=== PATIENT | female | born 2000 ===

== ENCOUNTER 2024-08-31 09:49 | Outpatient (AMB) | payer OTHER, BC, SELFPAY ==
--- NOTE | 2024-08-31 09:52 | A.OFFPC_ITS ---
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 Intake Note: new patient to establish care Bootmaker Hand Required: No Allergies No Known Allergies Allergy (Verified 08/31/24 10:06) Medication List - Last Reconciled 08/31/24 by KEENA Schaeffer No Known Home Meds Tobacco use date assessed: 08/31/24 Dental Screening Dental Screen Date: 08/31/24 Did you have a dental visit in the last 12 months?: Yes Did you have a dental problem in the last 6 months where you did not have access to dental care?: No Was dental information given to patient?: Patient has dentist HPI HPI Comments History of Present Illness Details 23 y/o F with seasonal allergies Surgery: None Familyhx: Paternal side substance abuse; Maternal great aunt breast cancer dx < age 50 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 No pets. Health Maintenance: Tdap declined Pap has never had one Flu declined Specialists: None Here today to [facility] care. for a CPE No medical records Well, offers no complaints. Does not wear glasses. Vision WNL has seasonal allergies that lead to nasal congestion and occasional use of nasal spray and oral antihistamines for relieF + effect Plan - Seasonal Allergic Rhinitis: Continue c urrent use of nasal spray and oral antihistamines as needed. No new medications prescribed. - Family History of Breast Cancer: Refer ral to [facility] for Pap smear and further women's health evaluation, establishing relationship for future gynecological care. - Vaccinations: Patient advised on impor tance of updating tetanus vaccination and possibility of receiving it during a future visit, despite uncertainty of last immunization. - Routine Lab Work: Offered to update sc reening labs including cholesterol and glucose, but patient opted to defer. Discussion Notes I discussed the importance of maintaining regular wellness exams and updating vaccinations. We reviewed the appropriate screenings, including Pap smears, to commence a preventative strategy for her gynecological health. We also considered updating her routine lab work, which she chose to delay. We discussed her family history of breast cancer and the referral process for establishing care with an [facility]. The risks and benefits of updating vaccinations were explained, specifically regarding tetanus, with her decision respected. I emphasized the option for further testing if she so chooses in the future. RTO 1 YEAR CPE SOONER PRN PFSH Medical History No pertinent past medical history Surgical History (Updated 08/31/24 @ 10:00 by Yung Lara MA) No pertinent past surgical history Family History Paternal Grandmother Substance abuse Maternal Grandmother Cancer Diabetes Social History (Updated 08/31/24 @ 09:58 by Yung Lara MA) Household Members: Significant Other Both parents involved: No Caregiver staying overnight: No Housing: Apartment Are you a primary career representative to a significant other at home: No Do you presently have visiting nurse or other home services: No 75 years or older and lives alone: No Alcohol intake: current Alcohol intake frequency: a few times a month Patient Tobacco Use Status: Never used Tobacco e-Cigarette/Vaping Use: Never Used Second Hand Smoke Exposure: No Current occupational status: employed 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 1. Little interest or pleasure in doing things: not at all 2. Feeling down, depressed, or hopeless: not at all 3. Trouble falling or staying asleep, or sleeping too much: not at all 4. Feeling tired or having little energy: not at all 5. Poor appetite or overeating: not at all 6. Feeling bad about yourself - or that you are a failure or have let yourself or your family down: not at all 7. Trouble concentrating on things, such as reading the newspaper or watching television: not at all 8. Moving or speaking so slowly that other people could have noticed. Or the opposite - being so fidgety or restless that you have been moving around a lot more than usual: not at all 9. Thoughts that you would be better off or of hurting yourself in some way: not at all Total score: 0 Depression Screening Interpretation: Negative Depression Screening Done: Yes 26118 - PHQ-9 Billing: Yes Source: Developed by Drs. Leodan Mar, Ramya Pineda, Sae Thomas and colleagues, with an educational ernst from [employer]. Thrive Questionnaire Date Thrive assessed: 08/31/24 I am a: Patient What is your living situation today?: I have a steady place to live Within the past 12 months, did the food you bought not last and you didn't have the money to get more?: Never true Within the past 12 months, did you worry whether your food would run out before you got money to buy more?: Never true Do you have trouble paying for medicines?: No Do you have trouble getting transportation to medical appointments?: No Do you have trouble paying your heating and electricity bill?: No Do you have trouble taking care of your child, family member or friend?: No Do you have trouble with day-to-day activities such as bathing, preparing meals, shopping, managing finances, etc.?: No Are you currently unemployed and looking for a job?: No Are you interested in more education?: No Please select the resources that you would like help with: None Currently or been in a relationship where the following occur: No concerns reported THRIVE Score: 0 AUDIT C Alcohol Use Questionnaire (AUDIT-C) 1. How often do you have a drink containing alcohol?: 2-4 times a month 2. How many drinks containing alcohol do you have on a typical day when you are drinking?: 1 or 2 3. How often do you have six or more drinks on one occasion?: Never Total Score: 2 Score Reviewed/Action Taken: Yes RUBÉN-7 AMB Questionnaire RUBÉN-7 Date RUBÉN - 7 assessed: 08/31/24 Feeling nervous, anxious, or on edge: 0 = Not at all Not being able to stop or control worryin = Not at all Worrying too much about different things: 0 = Not at all Trouble relaxin = Not at all Being so restless that it is hard to sit still: 0 = Not at all Becoming easily annoyed or irritable: 0 = Not at all Feeling afraid as if something awful might happen: 0 = Not at all Total RUBÉN-7 score (0-4 normal; 5-9 mild; 10-14 moderate; 15-21 severe): 0 Source: Developed by Drs. Leodan Mar, Ramya Pineda, Sae Thomas and colleagues, with an educational ernst from [employer]. RUBÉN-7 Assessment Billing RUBÉN-7 Assessment Tool: RUBÉN-7 Assessment 73576 Review of Systems Const Details: Constitutional: Denies fever. Skin: Denies rash. Eye: Denies eye pain. ENMT: Denies sore throat and nasal congestion. Respiratory: Denies shortness of breath and cough. Gastrointestinal: Denies nausea, vomiting or abdominal pain. Cardiovascular: Denies chest pain and syncope. Genitourinary: Denies dysuria. Musculoskeletal: Denies back pain and extremity pain. Neurologic: Denies headaches, confusion, and weakness. Psychiatric: Denies suicidal thoughts and substance abuse. Allergy/ Immunologic: Denies impaired immunity. Physical exam (Primary Care) Vital Signs: Last Vital Signs Pulse 85 08/31/24 10:00 Resp 12 08/31/24 10:00 BP 102/66 08/31/24 10:00 Pulse Ox 99 08/31/24 10:00 Oxygen Delivery Method Room Air 08/31/24 10:00 BMI result Body Mass Index 28.5 Tobacco/Smoking Status: Tobacco use Status Tobacco use date assessed 08/31/24 08/31/24 10:02 Patient Tobacco Use Status Never used Tobacco 08/31/24 10:02 e-Cigarette/Vaping Use Never Used 08/31/24 10:02 PHQ-9: PHQ-9 Score PHQ-9: Total score 0 08/31/24 10:13 Depression Screening Interpretation: Negative Thrive Assessment: Date of Thrive Assessment Date Thrive assessed 08/31/24 08/31/24 09:53 Currently or been in a relationship where the following occur: No concerns reported Const Other: General: Well developed, well nourished, in no acute distress. Appears stated age. Head: Normocephalic, atraumatic. Eyes: Pupils are equal, round and reactive to light and accommodation. Conjunctivae are clear. Vision grossly normal. Ears: EACS WNL trace congestion bilat TM Nose: Patent, without discharge. Turbinates edematous, pale Mouth: There are no ulcers or lesions noted. No inflammation, no post nasal drip, no plaques nor exudates. Neck: Supple, no adenopathy or thyromegaly. Lungs: Clear to auscultation bilaterally. No rales, rhonchi or wheeze noted. Good air flow in all garcia. Heart: Regular rate and rhythm. No murmurs, click, rubs or gallops are noted. Abdomen: Bowel sounds present in all quadrants. The abdomen is soft, nontender, with no masses or organomegaly noted. No hernias are noted. Musculoskeletal: Joints are nontender, without swelling, redness, or effusions. Range of motion is observed to be normal. Pulses: Peripheral pulses are equal and palpable bilaterally. Extremities: No clubbing, cyanosis nor edema is noted. Neurologic: Gait and station normal. Cranial Nerves 2-12 intact. Motor strength grossly symmetrical and intact. No sensory loss. Balance normal. Skin: No rashes, ulcers, or lesions noted. Turgor is good. Skin color is good. Hair and nails are without abnormalities. Psych: Normal eye contact, affect and mood appropriate, and normal interactions. Patient is alert and appropriate to context. Coding Level of Care Code New Pt Prev Care 18-39yr(35378 Diagnoses Encounter for general adult medical examination without abnormal findings Z00.00 Influenza vaccination declined Z28.21 Seasonal allergies J30.2 Additional Codes RUBÉN-7 Assessment Billing - RUBÉN-7 Assessment Tool: RUBÉN-7 Assessment 82287 ([id number]) PHQ-9 - 97971 - PHQ-9 Billing: Yes ([id number]) Assessment & Plan Assessment & Plan (1) Encounter for general adult medical examination without abnormal findings: Code(s): Z00.00 - Encounter for general adult medical examination without abnormal findings Category: Medical (2) Influenza vaccination declined: Code(s): Z28.21 - Immunization not carried out because of patient refusal Category: Medical (3) Seasonal allergies: Code(s): J30.2 - Other seasonal allergic rhinitis Category: Medical Plan . Orders: Referrals [facility] Referral Z12.4 - Encounter for screening for malignant neoplasm of cervix Patient Instructions: Walk-In Care (Urgent Care): We Make it Easy Walk-in for urgent medical issues such as: ? Seasonal Allergies ? Insect Bites ? Cough ? Diarrhea ? Acute Asthma Attacks ? Back, Knee or Joint Pain ? Ear Infection ? Fever without a Rash ? Headaches ? Nausea ? [place] Eye, Rash or Skin Irritation ? Sore Throat ? Sports Physicals ? Vomiting Most insurances are accepted. Patients do not need to be part of the [facility] to seek care at the walk-in clinic. Locations [address] [facility] , [place] [address] ? [phone] [facility] Walk-In Care in [place] provides services to ages 18 and over. Open Friday-Friday: 8 a.m. to 5 p.m. and Friday: 9 a.m. to 3 p.m.* *Hours may vary due to staffing availability. To confirm Walk-In Care hours in [place], please call [phone]. [address] [place] [address] ? [phone] [facility] Walk-In Care in [place] provides services to ages 12 and over. Open Friday-Friday: 8 a.m. to 5 p.m. Hours may vary due to staffing availability. To confirm Walk-In Care hours in [place], please call [phone]. LABORATORY SERVICES: [facility] ? Primary Location [address] [place] [address] Friday through Friday 6:00 AM ? 5:00 PM Friday 7:00 AM ? 11:00 AM* [phone] The [facility] is centrally located near the front entrance of the [facility] for easy outpatient access. Convenient parking is provided for outpatients. *Hours may vary due to staffing availability. To confirm Laboratory hours for any location, please call [phone]. Offsite Location For your convenience, we offer offsite laboratory draw stations at the following locations: [address] [place] [address] ? [address], [address] Friday through Friday 7:30 AM ? 1:00 PM* [phone] *Hours may vary due to staffing availability. To confirm Laboratory hours for any location, please call [phone]. [place] ? [address] Friday through Friday 6:00 AM ? 3:30 PM* Friday 6:30 AM ? 3 PM* [phone] *Hours may vary due to staffing availability. To confirm Laboratory hours for any location, please call [phone]. [address] [facility] Friday through Friday 7:30 AM ? 4:00 PM* [phone] *Hours may vary due to staffing availability. To confirm Laboratory hours for any location, please call [phone]. [address] [facility] Friday through 9:00 AM ? 4:00 PM* *Hours may vary due to staffing availability. To confirm Laboratory hours for any location, please call [phone]. Appointments are not necessary. Walk-ins are welcome. Like all the departments throughout the [facility], our Lab undergoes frequent reviews to ensure the quality and accuracy of test results, and our staff takes special pride in its status as a nationally accredited facility. Patient Portal: ONE PATIENT. ONE RECORD. BETTER CARE. [facility] has a fully integrated, cutting- edge mobile electronic health information system that has revolutionized the way we care for our patients and manage our organization. This system improves communication and coordination enabling us to provide safe, higher-quality care, and an overall positive experience for staff and patients. Our first priority, as always, is to deliver the highest quality care possible. The system is running in the background supporting that priority. This portal is for all [facility] services and practices. If you are experiencing any technical difficulties with enrolling or logging into the Patient Portal please complete the [facility] Patient Portal Technical Support Form. [facility] now offers a new secure on-line interactive tool for patients to review their health information ? ?Patient Portal. This interactive web portal will enable patients and their families to take an active role in their care by providing easy, secure access to their health information via the internet. The Patient Portal provides patients with instant access to their health information, including laboratory results, medications, allergies, demographic information, visit history, and more. In addition to managing their own care, parents and health care proxies with authorized consent will appreciate the ability to access the records of those individuals for whom they provide care. Please note: if you wish to gain access (Proxy) to another patient?s portal, you will be required to come to the Medical Records Department in person at [facility]. Both the patient giving proxy access and the proxy will need to provide photo identification and complete the appropriate authorization. The Patient Portal also allows track their appointments online. The [facility] Patient Portal also saves patients time by allowing them to submit updates to their demographic and contact information prior to their visits. Portal email notifications will also alert patients to any new activity on their portal, such as test results and new appointments. In order to initially enroll in the [facility] Patient Portal, you will need to enter some required information including the following: * your [facility] Medical Record number * your personal home email address * name * date of Please note: In order to enroll in the [facility] Patient Portal, we need to have your email address on file in your electronic medical record. ?The email address needs to be specific for one person (yourself) in order for your Portal enrollment to be successful. ?You can update your email address in person with our Registration staff when you are registering for a hospital visit. ?Otherwise, you will need to come to the Health Information Management (Medical Records) Department at [facility]. ?We are open from Friday ? Friday from 7:30 a.m. ? 4:30 p.m. ?You will be required to present a photo id. Once you have successfully enrolled in the Patient Portal, you will receive a one-time user id and password for the Portal, sent to your email address. ?This will allow you to log into the Patient Portal within 99 hrs and reset your own logon id and password, and define personal security questions. ?Once your permanent login and password have been set, you can log into the [facility] Patient Portal at any time via the blue button above or from the Portal Logon button on any page of the [facility] website. [facility] encourage all of our patients to enroll in Patient Portal as it presents a valuable opportunity for patients and their families to actively participate in their care and stay healthy Welcome to [facility]. ?We look forward to working with you. Health screenings for women You should visit your health care provider from time to time, even if you are healthy. The purpose of these visits is to: Screen for medical issues Assess your risk for future medical problems Encourage a healthy lifestyle Update vaccinations and other preventive care services Help you get to know your provider in case of an illness Information Even if you feel fine, you should still see your provider for regular checkups. These visits can help you avoid problems in the future. For example, the only way to find out if you have high blood pressure is to have it checked regularly. High blood sugar and high cholesterol levels also may not have any symptoms in the early stages. A simple blood test can check for these conditions. There are specific times when you should see your provider or receive specific health screenings. The [place] Preventive Services Task Force publishes a list of recommended screenings. Below are screening guidelines for women ages 18 to 39. BLOOD PRESSURE SCREENING Your blood pressure should be checked at least once every 3 to 5 years if: Your blood pressure is in the normal range (top number less than 120 mm Hg and bottom number less than 80 mm Hg) You don't have risk factors for high blood pressure Ask your provider if you need your blood pressure checked more often if: The top number is 120 to 129 mm Hg or the bottom number is 70 to 79 mm Hg You have diabetes, heart disease, kidney problems, are overweight, or have certain other health conditions You have a first-degree relative with high blood pressure You are Black You had high blood pressure during a If the top number is 130 mm Hg or greater or the bottom number is 80 mm Hg or greater, this is considered stage 1 hypertension. Schedule an appointment with your provider to learn how you can reduce your blood pressure. Watch for blood pressure screenings in your area. Ask your provider if you can stop in to have your blood pressure checked. BREAST CANCER SCREENING Experts do not agree about the benefits of breast self-exams in finding breast cancer or saving lives. Talk to your provider about what is best for you. A screening mammogram is not recommended for most women under age 40. Your provider may discuss and recommend mammograms, MRI scans, or ultrasounds if you have an increased risk for breast cancer, such as: A mother or sister who had breast cancer at a young age (most often starting screening earlier than the age the close relative was diagnosed) You carry a high-risk genetic marker CERVICAL CANCER SCREENING Cervical cancer screening should start at age 21 years unless your provider advises otherwise. After the first test: Women ages 21 through 29 should have a Pap test every 3 years. Exoprts do not agree on whether HPV testing is recommended for this age group. Women ages 30 through 65 should be screened with either a Pap test every 3 years or the HPV test every 5 years or both tests every 5 years (called cotesting ). Women who have been treated for precancer (cervical dysplasia) should continue to have Pap tests for 20 years after treatment or until age 65, whichever is longer. If you have had your uterus and cervix removed (total hysterectomy), and you have not been diagnosed with cervical cancer or precancer (high grade cervical neoplasia), you do not need cervical cancer screening. CHOLESTEROL SCREENING Cholesterol screening should begin at: Age 45 for women with no known risk factors for coronary heart disease Age 20 for women with known risk factors for coronary heart disease Repeat cholesterol screening should take place: Every 5 years for women with normal cholesterol levels More often if changes occur in lifestyle (including weight gain and diet) More often if you have diabetes, heart disease, kidney problems, or certain other conditions DIABETES SCREENING You should be screened for diabetes starting at age 35 and then repeated every 3 years if you have no risk factors for diabetes. Screening may need to start earlier and be repeated more often if you have other risk factors for diabetes, such as: You have a first degree relative with diabetes. You are overweight or have obesity. You have high blood pressure, prediabetes, or a history of heart disease. Screening for diabetes should be done if you are planning to become and you are overweight and have other risk factors such as high blood pressure. DENTAL EXAM Go to the dentist once or twice every year for an exam and cleaning. Your dentist will evaluate if you need more frequent visits. EYE EXAM Have an eye exam every 5 to 10 years before age 40. If you have vision problems, have an eye exam every 2 years or more often if recommended by your provider. You should have an eye exam that includes an examination of your retina (back of your eye) at least every year if you have diabetes. IMMUNIZATIONS Commonly needed vaccines include: Flu shot: get one every year. COVID-19 vaccine: ask your provider what is best for you. Tetanus-diphtheria and acellular pertussis (Tdap) vaccine: have one at or after age 19 as one of your tetanus-diphtheria vaccines if you did not receive it as an adolescent. Tetanus-diphtheria: have a booster (or Tdap) every 10 years. Varicella vaccine: receive 2 doses if you never had chickenpox or the varicella vaccine. Hepatitis B vaccine: receive 2, 3, or 4 doses, depending on your exact circumstances. Measles, mumps, and rubella (MMR) vaccine: receive 1 to 2 doses if you are not already immune to MMR. Your provider can tell you if you are immune. Ask your provider about the human papillomavirus (HPV) vaccine if: You have not received the HPV vaccine in the past You have not completed the full vaccine series (you should catch up on this shot) Ask your provider if you should receive other immunizations if you have certain health problems that increase your risk for some diseases such as pneumonia. INFECTIOUS DISEASE SCREENING Women who are sexually active should be screened for chlamydia and gonorrhea up until age 25. Women 25 years and older should be screened for chlamydia and gonorrhea if at high risk. Screening for hepatitis C: All adults ages 18 to 79 should get a one-time test for hepatitis C. people should be screened at every . Screening for human immunodeficiency virus (HIV): All people ages 15 to 65 should get a one-time test for HIV. Depending on your lifestyle and medical history, you may also need to be screened for infections such as syphilis and HIV, as well as other infections. PHYSICAL EXAM All adults should visit their provider from time to time, even if they are healthy. The purpose of these visits is to: Screen for disease Assess your risk of future medical problems Encourage a healthy lifestyle Update your vaccinations and other preventive care services Maintain a relationship with a provider in case of an illness Your height, weight, and BMI should be checked at every exam. During your exam, your provider may ask you about: Depression and anxiety Diet and exercise Alcohol and tobacco use Safety issues, such as using seat belts, smoke detectors, and intimate partner violence Your medicines and risk for interactions SKIN SELF-EXAM Your provider may check your skin for signs of skin cancer, especially if you're at high risk, such as if you: Have had skin cancer before Have close relatives with skin cancer Have a weakened immune system OTHER SCREENING Talk with your provider about colon cancer screening if you have a strong family history of colon cancer or polyps, or if you have had inflammatory bowel disease or polyps yourself. Routine bone density screening of women under 40 is not recommended.
[2024-08-31 10:00] VITALS: BP 102/66; PULSE 85; RESP 12; O2SAT 99; BMI 28.5
== END 2024-08-31 10:19 | disposition home or self-care (01) ==
PROVIDERS: PCP Nurse Practitioner Family; Visit Provider Nurse Practitioner Family
DX: Z00.00 Encounter for general adult medical examination without abnormal findings (principal); Z28.21 Immunization not carried out because of patient refusal; J30.2 Other seasonal allergic rhinitis

== ENCOUNTER → 2024-08-31 09:49 | Outpatient (BNVA) | payer OTHER, BC, SELFPAY | PROVIDERS: PCP Nurse Practitioner Family; Visit Provider Nurse Practitioner Family | DX: Z00.00 Encounter for general adult medical examination without abnormal findings (principal); J30.2 Other seasonal allergic rhinitis; Z28.21 Immunization not carried out because of patient refusal | CPT/HCPCS: 96127; 99385 ==

== ENCOUNTER 2024-10-26 09:21 | Outpatient (REF) | payer OTHER, SELFPAY ==
--- OUTSIDE RECORDS SUMMARY | 2024-10-26 11:52 | XMS_ITS | Encounter Summary ---
Author Organization [facility] Address [address] [place], [place] [address] Phone Care Team Providers Care Gaming Cage Worker Name Role Phone Irma Foley ELECTRICAL ENGINEERING TEACHER Primary Care Provider Un available Encounter Details Date Type Department Care Team (Late st Contact Info) Description 06/14/2011 Documentation [facility] [place] Family Medicine [address] [place] [address] Family Medicine, Physician [address] [place] [address] Social History Tobacco Use Types Packs/Day Years [...] on filedocumented in this encounter Care Teams Gaming Cage Worker Relationship Specialty Start Date End Date Irma Foley NP PCP - General 05/02/17 03/16/23 documented as of this encounter
--- OUTSIDE RECORDS SUMMARY | 2024-10-26 11:52 | XMS_ITS | Encounter Summary ---
Author Organization [facility] Address [address] [place], [place] [address] Phone Care Team Providers Care Fabrics And Material Cutter Name Role Phone Irma Foley CEMENT TESTER ASSISTANT Primary Care Provider Un available Encounter Details Date Type Department Care Team (Late st Contact Info) Description 04/21/2014 [place]ation [facility] [place] [address] [place] [address] Family Medicine, Physician [address] [place] [address] Social History Tobacco Use Types Packs/Day Years [...] on filedocumented in this encounter Care Teams Fabrics And Material Cutter Relationship Specialty Start Date End Date Irma Foley NP PCP - General 05/02/17 03/16/23 documented as of this encounter
--- OUTSIDE RECORDS SUMMARY | 2024-10-26 11:52 | XMS_ITS | Encounter Summary ---
Author Organization [facility] Address [address] [place], [place] [address] Phone Care Team Providers Care Multifocal Lens Assembler Name Role Phone Irma Foley TRANSPORTATION TECHNICIAN Primary Care Provider Un available Encounter Details Date Type Department Care Team (Late st Contact Info) Description 06/14/2011 Documentation [facility] [place] Family Medicine [address] [place] [address] Family Medicine, Physician [address] [place] [address] Social History Tobacco Use Types Packs/Day Years [...] on filedocumented in this encounter Care Teams Multifocal Lens Assembler Relationship Specialty Start Date End Date Irma Foley NP PCP - General 05/02/17 03/16/23 documented as of this encounter
--- OUTSIDE RECORDS SUMMARY | 2024-10-26 11:52 | XMS_ITS | Encounter Summary ---
Author Organization [facility] Address [address] [place], [place] [address] Phone Care Team Providers Care Unhairer Name Role Phone Irma Foley REAL ESTATE SALES ASSOCIATE Primary Care Provider Un available Encounter Details Date Type Department Care Team (Late st Contact Info) Description 06/14/2011 Documentation [facility] [place] Family [place] [address] [place] [address] Family Medicine, Physician [address] [place] [address] Social History Tobacco Use Types Packs/Day Years [...] on filedocumented in this encounter Care Teams Unhairer Relationship Specialty Start Date End Date Irma Foley NP PCP - General 05/02/17 03/16/23 documented as of this encounter
--- OUTSIDE RECORDS SUMMARY | 2024-10-26 11:52 | XMS_ITS | Encounter Summary ---
Author Organization [facility] Address [address] [place], [place] [address] Phone Care Team Providers Care Finish Painter Name Role Phone Irma Foley TRACTOR CRANE OPERATOR Primary Care Provider Un available Encounter Details Date Type Department Care Team (Late st Contact Info) Description 04/21/2015 Documentation [facility] [place] [address] [place] [address] Family Medicine, Physician [address] [place] [address] Social History Tobacco Use Types Packs/Day Years [...] on filedocumented in this encounter Care Teams Finish Painter Relationship Specialty Start Date End Date Irma Foley NP PCP - General 05/02/17 03/16/23 documented as of this encounter
--- OUTSIDE RECORDS SUMMARY | 2024-10-26 11:52 | XMS_ITS | Encounter Summary ---
Author Organization [facility] Address [address] [place], [place] [address] Phone Care Team Providers Care Section Leader Name Role Phone Irma Foley PLASTIC EXTRUDING MACHINE OPERATOR Primary Care Provider Un available Encounter Details Date Type Department Care Team (Late st Contact Info) Description 06/14/2011 Documentation [facility] [place] Family Medicine [address] [place] [address] Family Medicine, Physician [address] [place] [address] Social History Tobacco Use Types Packs/Day Years [...] on filedocumented in this encounter Care Teams Section Leader Relationship Specialty Start Date End Date Irma Foley NP PCP - General 05/02/17 03/16/23 documented as of this encounter
--- OUTSIDE RECORDS SUMMARY | 2024-10-26 11:52 | XMS_ITS | Encounter Summary ---
Author Organization [facility] Address [address] [place], [place] [address] Phone Care Team Providers Care Road Advisor Name Role Phone Irma Foley ELECTRIC MELT OPERATOR Primary Care Provider Un available Encounter Details Date Type Department Care Team (Late st Contact Info) Description 06/14/2011 Documentation [place] Family Medicine [address] [place] [address] Family Medicine, Physician [address] [place] [address] Social History Tobacco Use Types Packs/Day Years [...] on filedocumented in this encounter Care Teams Road Advisor Relationship Specialty Start Date End Date Irma Foley NP PCP - General 05/02/17 03/16/23 documented as of this encounter
--- OUTSIDE RECORDS SUMMARY | 2024-10-26 11:52 | XMS_ITS | Encounter Summary ---
Author Organization [facility] Address [address] [place], [place] [address] Phone Care Team Providers Care Tractor Engine Mechanic Name Role Phone Irma Foley REGISTERED PRIVATE DUTY NURSE Primary Care Provider Un available Encounter Details Date Type Department Care Team (Late st Contact Info) Description 04/21/2014 Documentation [facility] [place] Family Medicine [address] [place] [address] Family Medicine, Physician [address] [place] [address] Social History Tobacco Use Types Packs/Day Years [...] on filedocumented in this encounter Care Teams Tractor Engine Mechanic Relationship Specialty Start Date End Date Irma Foley NP PCP - General 05/02/17 03/16/23 documented as of this encounter
--- OUTSIDE RECORDS SUMMARY | 2024-10-26 11:52 | XMS_ITS | Clinical Summary ---
Author Organization [facility] Address [address] [place] [address] Phone Care Team Providers Care Oxygen Equipment Technician Name Role Phone Unavailable Primary Care Provider [...] well Paternal Grandfather Paterna l grandfather: Sudden /[place] under age 55, Paternal Grandmother Sister Sabree [...] complete this topic Procedures * Due to [facility] law, this organization might not be sharing sensitive test results. Procedure Name Priority Date/Time Associated Diagnosis Comments CHLAMYDIA AND GONORRHEA, AMPLIFIED Routine 10/06/2018 10:48 AM EST Special screening for bacterial and spirochetal disease from Last 3 Months or Most Recently Relevant to Health Maintenance Results * Due to [place] [employer] law, this organization might not be sharing sensitive test results. * Chlamydia and Gonorrhoea, Amplified (10/06/2018 10:48 AM EST) Chlamydia Trachomatis, DNA Probe NEGATIVE (NEG) [facility] Comment: No Chlamydia Trachomatis RNA detected in this patient's sample ? (REFERENCE RANGE/NORMAL VALUE: NOT DETECTED) ? Note: This test uses rehabilitation psychologist- mediated amplification method to detect rRNA from C. Trachomatis URINE GC AMP PROBE NEGATIVE (NEG) [facility] Comment: No Neisseria Gonorrhoeae RNA detected in this patient's sample ? (REFERENCE RANGE/NORMAL VALUE: NOT DETECTED) ? NOTE: This test uses rehabilitation psychologist-mediated amplification method to detect rRNA from N.Gonorrhoeae. [...] without risk of sexual abuse. Consult the [facility] if needed. Contact phone number . Therapeutic failure or success cannot be determined with the Aptima Combo2 assay since nucleic acid may persist following appropriate antimicrobial therapy. The Centers for Disease Control and Prevention (CDC) recommends confirmatory retesting using culture or a different nucleic acid amplification test when positive results occur, if indicated. Testing performed or reported by [facility], a Service of [facility], [facility] [place] [address] [facility] [id number] Markus Brown MD, Casino Floor Walker Urine 10/06/2018 10:4 8 AM EST 10/07/2018 12:15 AM EST us Irma Foley NP LAB MICROBIOLOGY - GENERA L ORDERABLES Final Result Performing Organization Address City/State/[facility] Co de Phone Number [facility] from Last 3 Months or Most Recently Relevant to Health Maintenance Insurance [facility] NON PCC
--- OUTSIDE RECORDS SUMMARY | 2024-10-26 11:52 | XMS_ITS | Encounter Summary ---
Author Organization [facility] Address [address] [place], [place] [address] Phone Care Team Providers Care Adult Literacy Teacher Name Role Phone Irma Foley CODING QUALITY COORDINATOR Primary Care Provider Un available Encounter Details Date Type Department Care Team (Late st Contact Info) Description 06/14/2011 Documentation [facility] [place] [address] [place] [address] Family Medicine, Physician [address] [place] [address] Social History Tobacco Use Types Packs/Day Years [...] filedocumented in this encounter Care Teams Adult Literacy Teacher Relationship Specialty Start Date End Date Irma Foley NP PCP - General 05/02/17 03/16/23 documented as of this encounter
--- OUTSIDE RECORDS SUMMARY | 2024-10-26 11:52 | XMS_ITS | Encounter Summary ---
Author Organization [facility] Address [address] [place], [place] [address] Phone Care Team Providers Care Glass Toughening Operator Name Role Phone Irma Foley SAP FICO ARCHITECT Primary Care Provider Un available Encounter Details Date Type Department Care Team (Late st Contact Info) Description 06/14/2011 Documentation [facility] [place] Family Medicine [address] [place] [address] Family Medicine, Physician [address] [place] [address] Social History Tobacco Use Types Packs/Day Years [...] on filedocumented in this encounter Care Teams Glass Toughening Operator Relationship Specialty Start Date End Date Irma Foley NP PCP - General 05/02/17 03/16/23 documented as of this encounter
--- OUTSIDE RECORDS SUMMARY | 2024-10-26 11:52 | XMS_ITS | Encounter Summary ---
Author Organization [facility] Address [address] [place], [place] [address] Phone Care Team Providers Care Trucking Manager Name Role Phone Irma Foley ACADEMIC INTERN Primary Care Provider Un available Encounter Details Date Type Department Care Team (Late st Contact Info) Description 04/21/2015 Documentation [facility] [place] Family Medicine [address] [place] [address] Family Medicine, Physician [address] [place] [address] Social History Tobacco Use Types Packs/Day Years [...] on filedocumented in this encounter Care Teams Trucking Manager Relationship Specialty Start Date End Date Irma Foley NP PCP - General 05/02/17 03/16/23 documented as of this encounter
--- OUTSIDE RECORDS SUMMARY | 2024-10-26 11:52 | XMS_ITS | Encounter Summary ---
Author Organization [facility] Address [address] [place], [place] [address] Phone Care Team Providers Care Drop Forger Helper Name Role Phone Irma Foley DUPLICATOR PUNCH SET UP OPERATOR Primary Care Provider Un available Encounter Details Date Type Department Care Team (Late st Contact Info) Description 04/20/2014 Documentation [facility] [place] [address] [place] [address] Family Medicine, Physician [address] [place] [address] Social History Tobacco Use Types Packs/Day Years [...] on filedocumented in this encounter Care Teams Drop Forger Helper Relationship Specialty Start Date End Date Irma Foley NP PCP - General 05/02/17 03/16/23 documented as of this encounter
--- OUTSIDE RECORDS SUMMARY | 2024-10-26 11:52 | XMS_ITS | Encounter Summary ---
Author Organization [facility] Address [address] [place], [place] [address] Phone Care Team Providers Care Diabetes Educator Name Role Phone Irma Foley TRANSIT SURVEY WORKER Primary Care Provider Un available Encounter Details Date Type Department Care Team (Late st Contact Info) Description 04/24/2015 Documentation [facility] [place] [address] [place] [address] Family Medicine, Physician [address] [place] [address] Social History Tobacco Use Types Packs/Day Years [...] on filedocumented in this encounter Care Teams Diabetes Educator Relationship Specialty Start Date End Date Irma Foley NP PCP - General 05/02/17 03/16/23 documented as of this encounter
--- OUTSIDE RECORDS SUMMARY | 2024-10-26 11:52 | XMS_ITS | Encounter Summary ---
Author Organization [facility] Address [address] [place], [place] [address] Phone Care Team Providers Care Water Project Manager Name Role Phone Irma Foley DATA SECURITY CONSULTANT Primary Care Provider Un available Encounter Details Date Type Department Care Team (Late st Contact Info) Description 04/21/2013 Documentation [place] Family Medicine [address] [place] [address] Family Medicine, Physician [address] [place] [address] Social History Tobacco Use Types Packs/Day Years [...] on filedocumented in this encounter Care Teams Water Project Manager Relationship Specialty Start Date End Date Irma Foley NP PCP - General 05/02/17 03/16/23 documented as of this encounter
--- OUTSIDE RECORDS SUMMARY | 2024-10-26 11:52 | XMS_ITS | Encounter Summary ---
Author Organization [facility] Address [address] [place], [place] [address] Phone Care Team Providers Care Loom Control Chain Builder Name Role Phone Irma Foley STANDPIPE TENDER Primary Care Provider Un available Encounter Details Date Type Department Care Team (Late st Contact Info) Description 06/14/2011 Documentation [facility] [place] [address] [place] [address] Family Medicine, Physician [address] [place] [address] Social History Tobacco Use Types Packs/Day Years [...] on filedocumented in this encounter Care Teams Loom Control Chain Builder Relationship Specialty Start Date End Date Irma Foley NP PCP - General 05/02/17 03/16/23 documented as of this encounter
--- OUTSIDE RECORDS SUMMARY | 2024-10-26 11:52 | XMS_ITS | Encounter Summary ---
Author Organization [facility] Address [address] [place], [place] [address] Phone Care Team Providers Care Mortgage Loan Computation Clerk Name Role Phone Irma Foley ETHNOGRAPHIC MATERIALS CONSERVATOR Primary Care Provider Un available Encounter Details Date Type Department Care Team (Late st Contact Info) Description 06/14/2011 Documentation [facility] [place] Family Medicine [address] [place] [address] Family Medicine, Physician [address] [place] [address] Social History Tobacco Use Types Packs/Day Years [...] on filedocumented in this encounter Care Teams Mortgage Loan Computation Clerk Relationship Specialty Start Date End Date Irma Foley NP PCP - General 05/02/17 03/16/23 documented as of this encounter
--- OUTSIDE RECORDS SUMMARY | 2024-10-26 11:53 | XMS_ITS | Encounter Summary ---
Author Organization [facility] Address [address] [place], [place] [address] Phone Care Team Providers Care Webbing Weaver Name Role Phone Irma Foley COREMAKER BENCH Primary Care Provider Un available Encounter Details Date Type Department Care Team (Late st Contact Info) Description 06/14/2011 Documentation [facility] [place] Family Medicine [address] [place] [address] Family Medicine, Physician [address] [place] [address] Social History Tobacco Use Types Packs/Day Years [...] on filedocumented in this encounter Care Teams Webbing Weaver Relationship Specialty Start Date End Date Irma Foley NP PCP - General 05/02/17 03/16/23 documented as of this encounter
--- OUTSIDE RECORDS SUMMARY | 2024-10-26 11:53 | XMS_ITS | Encounter Summary ---
Author Organization [facility] Address [address] [place], [place] [address] Phone Care Team Providers Care Executive Asst Name Role Phone Irma Foley COMMERCIAL FISHING VESSEL OPERATOR Primary Care Provider Un available Encounter Details Date Type Department Care Team (Late st Contact Info) Description 06/14/2011 Documentation [facility] [place] [address] [place] [address] Family Medicine, Physician [address] [place] [address] Social History Tobacco Use Types Packs/Day Years [...] on filedocumented in this encounter Care Teams Executive Asst Relationship Specialty Start Date End Date Irma Foley NP PCP - General 05/02/17 03/16/23 documented as of this encounter
--- OUTSIDE RECORDS SUMMARY | 2024-10-26 11:53 | XMS_ITS | Encounter Summary ---
Author Organization [facility] Address [address] [place], [place] [address] Phone Care Team Providers Care Nurse Unit Manager Name Role Phone Irma Foley SUPERVISOR FLOOR ASSEMBLY Primary Care Provider Un available Encounter Details Date Type Department Care Team (Late st Contact Info) Description 04/24/2015 Documentation [facility] [place] Family Medicine [address] [place] [address] Family Medicine, Physician [address] [place] [address] Social History Tobacco Use Types Packs/Day Years [...] on filedocumented in this encounter Care Teams Nurse Unit Manager Relationship Specialty Start Date End Date Irma Foley NP PCP - General 05/02/17 03/16/23 documented as of this encounter
--- OUTSIDE RECORDS SUMMARY | 2024-10-26 11:53 | XMS_ITS | Encounter Summary ---
Author Organization [facility] Address [address] [place], [place] [address] Phone Care Team Providers Care Customer Experience Leader Name Role Phone Irma Foley AUTOMOBILE WRECKER Primary Care Provider Un available Encounter Details Date Type Department Care Team (Late st Contact Info) Description 04/24/2016 Documentation [facility] [place] Family Medicine [facility] [place] [address] Family Medicine, Physician [address] [place] [address] Social History Tobacco Use Types Packs/Day Years [...] on filedocumented in this encounter Care Teams Customer Experience Leader Relationship Specialty Start Date End Date Irma Foley NP PCP - General 05/02/17 03/16/23 documented as of this encounter
--- OUTSIDE RECORDS SUMMARY | 2024-10-26 11:53 | XMS_ITS | Encounter Summary ---
Author Organization [facility] Address [address] [place], [place] [address] Phone Care Team Providers Care Chili Maker Name Role Phone Irma Foley HIV PREVENTION SPECIALIST Primary Care Provider Un available Encounter Details Date Type Department Care Team (Late st Contact Info) Description 04/21/2013 Documentation [facility] [place] Family Medicine [address] [place] [address] Family Medicine, Physician [address] [place] [address] Social History Tobacco Use Types Packs/Day Years [...] on filedocumented in this encounter Care Teams Chili Maker Relationship Specialty Start Date End Date Irma Foley NP PCP - General 05/02/17 03/16/23 documented as of this encounter
--- OUTSIDE RECORDS SUMMARY | 2024-10-26 11:53 | XMS_ITS | Encounter Summary ---
Author Organization [facility] Address [address] [place], [place] [address] Phone Care Team Providers Care Wood Preserving Plant Laborer Name Role Phone Irma Foley SHAPER SETTER Primary Care Provider Un available Encounter Details Date Type Department Care Team (Late st Contact Info) Description 03/09/2010 Documentation [facility] [place] [address] [place] [address] Family Medicine, Physician [address] [place] [address] Social History Tobacco Use Types Packs/Day Years [...] on filedocumented in this encounter Care Teams Wood Preserving Plant Laborer Relationship Specialty Start Date End Date Irma Foley NP PCP - General 05/02/17 03/16/23 documented as of this encounter
--- OUTSIDE RECORDS SUMMARY | 2024-10-26 11:53 | XMS_ITS | Encounter Summary ---
Author Organization [facility] Address [address] [place], [place] [address] Phone Care Team Providers Care Lost Charge Card Clerk Name Role Phone Irma Foley DISTRICT TRAFFIC CHIEF Primary Care Provider Un available Encounter Details Date Type Department Care Team (Late st Contact Info) Description 12/25/2015 Documentation [facility] [place] Family Medicine [address] [place] [address] Family Medicine, Physician [address] [place] [address] Social History Tobacco Use Types Packs/Day Years [...] on filedocumented in this encounter Care Teams Lost Charge Card Clerk Relationship Specialty Start Date End Date Irma Foley NP PCP - General 05/02/17 03/16/23 documented as of this encounter
--- OUTSIDE RECORDS SUMMARY | 2024-10-26 11:53 | XMS_ITS | Encounter Summary ---
Author Organization [facility] Address [address] [place], [place] [address] Phone Care Team Providers Care Direct Of Real Estate Name Role Phone Irma Foley DUBBING MACHINE OPERATOR Primary Care Provider Un available Encounter Details Date Type Department Care Team (Late st Contact Info) Description 02/10/2012 Documentation [facility] [place] [address] [place] [address] Family Medicine, Physician [address] [place] [address] Social History Tobacco Use Types Packs/Day Years [...] on filedocumented in this encounter Care Teams Direct Of Real Estate Relationship Specialty Start Date End Date Irma Foley NP PCP - General 05/02/17 03/16/23 documented as of this encounter
--- OUTSIDE RECORDS SUMMARY | 2024-10-26 11:53 | XMS_ITS | Encounter Summary ---
Author Organization [facility] Address [address] [place] [address] Phone Care Team Providers Care Health/Safety Job Titles Name Role Phone Irma Foley GAS GENERATOR OPERATOR Primary Care Provider Un available Encounter Details Date Type Department Care Team (Late st Contact Info) Description 05/08/2017 Conversion Encounter [facility] [address] [address] Social History Tobacco Use Types Packs/Day Years [...] on filedocumented in this encounter Care Teams Health/Safety Job Titles Relationship Specialty Start Date End Date Irma Foley NP PCP - General 05/02/17 03/16/23 documented as of this encounter
--- OUTSIDE RECORDS SUMMARY | 2024-10-26 11:53 | XMS_ITS | Encounter Summary ---
Author Organization [facility] Address [address] [place], [place] [address] Phone Care Team Providers Care Cad Application Support Specialist Name Role Phone Irma Foley SPORTS DIRECTOR Primary Care Provider Un available Encounter Details Date Type Department Care Team (Late st Contact Info) Description 02/10/2012 Documentation [facility] [place] Family Medicine [address] [place] [address] Family Medicine, Physician [address] [place] [address] Social History Tobacco Use Types Packs/Day Years [...] on filedocumented in this encounter Care Teams Cad Application Support Specialist Relationship Specialty Start Date End Date Irma Foley NP PCP - General 05/02/17 03/16/23 documented as of this encounter
--- OUTSIDE RECORDS SUMMARY | 2024-10-26 11:53 | XMS_ITS | Encounter Summary ---
Author Organization [facility] Address [address] [place], [place] [address] Phone Care Team Providers Care Turntable Operator Name Role Phone Irma Foley PAINTING TRADES WORKER Primary Care Provider Un available Encounter Details Date Type Department Care Team (Late st Contact Info) Description 04/24/2016 Documentation [facility] [place] Family Medicine [facility] [place] [address] Family Medicine, Physician [address] [place] [address] Social History Tobacco Use Types Packs/Day Years [...] on filedocumented in this encounter Care Teams Turntable Operator Relationship Specialty Start Date End Date Irma Foley NP PCP - General 05/02/17 03/16/23 documented as of this encounter
--- OUTSIDE RECORDS SUMMARY | 2024-10-26 11:53 | XMS_ITS | Encounter Summary ---
Author Organization [facility] Address [address] [place], [place] [address] Phone Care Team Providers Care Cement Sack Breaker Name Role Phone Irma Foley OCCUPATIONAL HEALTH NURSE SUPERVISOR Primary Care Provider Un available Encounter Details Date Type Department Care Team (Late st Contact Info) Description 04/24/2016 Documentation [facility] [place] Family Medicine [facility] [place] [address] Family Medicine, Physician [address] [place] [address] Social History Tobacco Use Types Packs/Day Years [...] on filedocumented in this encounter Care Teams Cement Sack Breaker Relationship Specialty Start Date End Date Irma Foley NP PCP - General 05/02/17 03/16/23 documented as of this encounter
--- OUTSIDE RECORDS SUMMARY | 2024-10-26 11:53 | XMS_ITS | Encounter Summary ---
Author Organization [facility] Address [address] [place], [place] [address] Phone Care Team Providers Care Rock Cutter Name Role Phone Irma Foley NON MORSE INTERCEPT TECHNICIAN Primary Care Provider Un available Encounter Details Date Type Department Care Team (Late st Contact Info) Description 06/14/2011 Documentation [facility] [place] [address] [place] [address] Family Medicine, Physician [address] [place] [address] Social History Tobacco Use Types Packs/Day Years [...] on filedocumented in this encounter Care Teams Rock Cutter Relationship Specialty Start Date End Date Irma Foley NP PCP - General 05/02/17 03/16/23 documented as of this encounter
--- OUTSIDE RECORDS SUMMARY | 2024-10-26 11:53 | XMS_ITS | Encounter Summary ---
Author Organization [facility] Address [address] [place], [place] [address] Phone Care Team Providers Care Sap Developer Name Role Phone Irma Foley CARVER HAND Primary Care Provider Un available Encounter Details Date Type Department Care Team (Late st Contact Info) Description 05/30/2011 Documentation [facility] [place] Family Medicine [address] [place] [address] Family Medicine, Physician [address] [place] [address] Social History Tobacco Use Types Packs/Day Years [...] on filedocumented in this encounter Care Teams Sap Developer Relationship Specialty Start Date End Date Irma Foley NP PCP - General 05/02/17 03/16/23 documented as of this encounter
--- OUTSIDE RECORDS SUMMARY | 2024-10-26 11:53 | XMS_ITS | Encounter Summary ---
Author Organization [facility] Address [address] [place], [place] [id number] Phone Care Team Providers Care Eeg Technologist Name Role Phone Irma Foley [employer] Primary Care Provider Un available Encounter Details Date Type Department Care Team (Late st Contact Info) Description 06/14/2011 Documentation [facility] [place] Family Medicine [address] [place] [address] Family Medicine, Physician [address] [place] [address] Social History Tobacco Use Types Packs/Day Years [...] on filedocumented in this encounter Care Teams Eeg Technologist Relationship Specialty Start Date End Date Irma Foley NP PCP - General 05/02/17 03/16/23 documented as of this encounter
[2024-10-27 02:28] LABS: CT PCR NOT DETECTED (Not Detect.); NG PCR NOT DETECTED (Not Detect.)
[2024-10-27 08:27] LABS: Bacterial Vaginosis PCR POSITIVE (Negative); Candida Group PCR NOT DETECTED (Not Detect); Candida glab krusei PCR NOT DETECTED (Not Detect); Trichomonas vaginalis PCR NOT DETECTED (Not Detect)
== END 2024-10-26 09:22 | disposition home or self-care (01) ==
LOC: HO.LAB 09:21
PROVIDERS: PCP Nurse Practitioner Family; Visit Provider Advanced Practice Midwife
DX: Z01.419 Encounter for gynecological examination (general) (routine) without abnormal findings (principal); N89.8 Other specified noninflammatory disorders of vagina; Z20.2 Contact with and (suspected) exposure to infections with a predominantly sexual mode of transmission; Z11.3 Encounter for screening for infections with a predominantly sexual mode of transmission
CPT/HCPCS: 81515; 87491; 87591; 99385; 99459

== ENCOUNTER 2024-10-26 09:21 | Outpatient (AMB) | payer OTHER, SELFPAY ==
--- NOTE | 2024-10-26 09:28 | A.OFFVIS_ITS ---
Vital Signs 10/26/24 09:29 Height 5 ft 4 in Weight 166 lb BMI 28.5 BP 110/62 Intake Visit Reasons: New Patient annual Fire Fighting Equipment Specialist Required: No Fire Fighting Equipment Specialist Services: Fire Fighting Equipment Specialist Present Information Interpreted: clinical only School Resource Officer: School Resource Officer Present Allergies No Known Allergies Allergy (Verified 10/26/24 09:29) Medication List - Last Reconciled 10/26/24 by Gauri Mae CNM No Known Home Meds Is last menstrual period known: Yes Last menstrual period: 10/21/24 HPI HPI New Patient annual: Details: Patient is here for her 1st nurse gynecology exam. She has never had a Pap smear or an exam before. She is sexually active with a partner of 2 or 3 years she is open to if it occurs she is not actively trying nor she actively trying to prevent, and it would be okay if she got . She has normal regular menses that come every month on time and she does use a period tracker and is learning about symptoms of ovulation and is following that physically as well. 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 She does not take vitamins. She grew up in the area she currently lives in [place]. She has no concerns about STIs or any other health issues the only family history of note is a grandmother's sister who had breast cancer and she thinks developed it before age 50 possibly in 40s. She just had a primary care visit recently. [facility] Medical History No pertinent past medical history Surgical History No pertinent past surgical history Family History Paternal Grandmother Substance abuse Maternal Grandmother Cancer Diabetes Social History Household Members: Significant Other Both parents involved: No Caregiver staying overnight: No Housing: Apartment Are you a primary animal care assistant to a significant other at home: No Do you presently have visiting nurse or other home services: No 75 years or older and lives alone: No Alcohol intake: current Alcohol intake frequency: a few times a month Patient Tobacco Use Status: Never used Tobacco e-Cigarette/Vaping Use: Never Used Second Hand Smoke Exposure: No Current occupational status: employed 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 Cognitive needs: No Hearing needs: No Vision needs: No Female Reproductive History Menstrual Age of Menarche: 11 Duration of menses: 3-5 days Date of last menstrual period: 10/21/24 control method: none Total pregnancies: 0 History of abnormal pap smear: No (no previous pap) Physical Exam Vital Signs: Last Vital Signs BP 110/62 10/26/24 09:29 BMI result Body Mass Index 28.5 Const General: healthy appearing, comfortable, no acute distress, well developed and alert Nutritional Appearance: average body habitus Orientation/consciousness: patient oriented x3 Limitations: no limitations HEENT Head: Yes normocephalic Neck Neck: Yes normal visual inspection Chest Chest palpation & inspection: normal inspection of the chest Breast/axilla inspection: normal inspection of the breasts and normal inspection of the axillae Breast/axilla palpation: normal palpation of the breasts and normal palpation of the axillae Resp Effort & Inspection: normal respiratory effort GI Inspection: Yes normal to inspection, No Abdominal wall edema and No distended Palpation (GI): Soft to palpation and nontender Other: External exam within normal limits vagina is pink and moist small pink nulliparous cervix is clear end of menses blood came through os. Uterus is small midplane slightly posterior mobile and nontender adnexa nontender not enlarged good tone with Kegel. General: Yes bladder normal to palpation External Female Exam: normal external appearance and normal appearance of the urethra Speculum Exam - Vagina: normal appearance of the vagina, normal palpation and normal vaginal discharge Speculum Exam - Cervix: normal appearance of the cervix, normal palpation and nontender Bimanual exam- vagina & uterus: normal bimanual exam, normal palpation, uterine size normal, bladder normal to palpation, consistency normal, normal palpation, uterine mobility normal, uterine shape normal, No Cervical tenderness present, non-tender and no cervical motion tenderness Bimanual Exam- Adnexa, other: normal adnexae, no masses, normal and No adnexal tenderness Neuro General: patient oriented x3 Assessment & Plan Assessment & Plan (1) Well woman exam with routine gynecological exam: Code(s): Z01.419 - Encounter for gynecological examination (general) (routine) without abnormal findings Category: Medical (2) Cervical cancer screening: Code(s): Z12.4 - Encounter for screening for malignant neoplasm of cervix Category: Medical (3) Encounter for screening examination for sexually transmitted disease: Code(s): Z11.3 - Encounter for screening for infections with a predominantly sexual mode of transmission Category: Medical (4) Family planning education, guidance, and counseling: Code(s): Z30.09 - Encounter for other general counseling and advice on contraception Category: Medical Plan -----Discussed in this visit the following: healthy balanced diet, regular and consistent exercise, getting recommended health screens, doing the best she can for her particular health concerns, kegel exercises, pap smear screening and followup recommendations, mammography screening and SBE, normal changes in cycles in her life stage--- . I reviewed healthy diet and exercise if she is open or not preventing including the benefits of folic acid. Discussed all of the options for receiving care and delivery and full care in her in the entire [place] including the options of receiving care here and delivering at [facility] versus starting care from the start which is recommended in her 1st with the team that will be with her throughout and through the delivery as well at other institutions such as [address] and other options she may avail of. Discussed some of the issues that can arise in the in that continuity of care is important. That being said, I also offered testing for STIs via blood work for HIV hep B hep C and syphilis but she felt need and declined. Discussed that her Pap smear if this 1 is normal would be repeated every 3 years in her age group. Discussed that we say to come back every year for exam and she could also be seen for any other nurse gynecology healthcare knee and if she missed more than 3 years she would start over as patient.. Congratulated on her healthy lifestyle and on her efforts to improve the health of others in her work as well. Timeframe/Date Comment RTC for nurse gynecology annual 1 year Coding Level of Care Code New Pt Prev Care 18-39yr([id number] Diagnoses Well woman exam with routine gynecological exam Z01.419 Cervical cancer screening Z12.4 Encounter for screening examination for sexually transmitted disease Z11.3 Family planning education, guidance, and counseling Z30.09
[2024-10-26 09:29] VITALS: BP 110/62; BMI 28.5
--- OUTSIDE RECORDS SUMMARY | 2024-10-26 09:51 | XMS_ITS | Encounter Summary ---
Author Organization [facility] Address [address] [place], [place] [address] Phone Care Team Providers Care Supervisor Securities Vault Name Role Phone Irma Foley CIGAR MAKER Primary Care Provider Un available Encounter Details Date Type Department Care Team (Late st Contact Info) Description 04/21/2014 Documentation [facility] [place] Family Medicine [address] [place] [address] Family Medicine, Physician [address] [place] [address] Social History Tobacco Use Types Packs/Day Years Used Date Smoking Tobacco: Never Assessed Comments Unknown Sex and Gender Information Value Date Recorded Sex Assigned at Not on file Legal Sex Female 4:57 PM EDT Gender Identity Not on file Sexual Orientation Not on file documented as of this encounter Plan of Treatment Not on file documented as of this encounter Visit Diagnoses Not on filedocumented in this encounter Care Teams Supervisor Securities Vault Relationship Specialty Start Date End Date Irma Foley NP PCP - General 05/02/17 03/16/23 documented as of this encounter
--- OUTSIDE RECORDS SUMMARY | 2024-10-26 09:51 | XMS_ITS | Encounter Summary ---
Author Organization [facility] Address [address] [place], [place] [address] Phone Care Team Providers Care Door Glass Installer Name Role Phone Irma Foley BARROW WORKER HELPER Primary Care Provider Un available Encounter Details Date Type Department Care Team (Late st Contact Info) Description 06/14/2011 Documentation [facility] [place] Family Medicine [address] [place] [address] Family Medicine, Physician [address] [place] [address] Social History Tobacco Use Types Packs/Day Years [...] on filedocumented in this encounter Care Teams Door Glass Installer Relationship Specialty Start Date End Date Irma Foley NP PCP - General 05/02/17 03/16/23 documented as of this encounter
--- OUTSIDE RECORDS SUMMARY | 2024-10-26 09:51 | XMS_ITS | Encounter Summary ---
Author Organization [facility] Address [address] [place], [place] [address] Phone Care Team Providers Care Acute Care Physician Name Role Phone Irma Foley MERCHANDISE FLOW MANAGER Primary Care Provider Un available Encounter Details Date Type Department Care Team (Late st Contact Info) Description 04/21/2015 Documentation [facility] [place] [address] [place] [address] Family Medicine, Physician [address] [place] [address] Social History Tobacco Use Types Packs/Day Years [...] on filedocumented in this encounter Care Teams Acute Care Physician Relationship Specialty Start Date End Date Irma Foley NP PCP - General 05/02/17 03/16/23 documented as of this encounter
--- OUTSIDE RECORDS SUMMARY | 2024-10-26 09:51 | XMS_ITS | Encounter Summary ---
Author Organization [facility] Address [address] [place], [place] [address] Phone Care Team Providers Care Brazing Machine Operator Name Role Phone Irma Foley SHOP LABORER Primary Care Provider Un available Encounter Details Date Type Department Care Team (Late st Contact Info) Description 06/14/2011 Documentation [facility] [place] Family Medicine [address] [place] [address] Family Medicine, Physician [address] [place] [address] Social History Tobacco Use Types Packs/Day Years [...] on filedocumented in this encounter Care Teams Brazing Machine Operator Relationship Specialty Start Date End Date Irma Foley NP PCP - General 05/02/17 03/16/23 documented as of this encounter
--- OUTSIDE RECORDS SUMMARY | 2024-10-26 09:51 | XMS_ITS | Encounter Summary ---
Author Organization [facility] Address [address] [place], [place] [phone] Phone Care Team Providers Care Sanitation Worker Cleaning Equipment Name Role Phone Irma Foley DAY TREATMENT CLINICIAN/ART THERAPIST Primary Care Provider Un available Encounter Details Date Type Department Care Team (Late st Contact Info) Description 04/20/2014 Documentation [facility] [place] Family Medicine [address] [place] [address] Family Medicine, Physician [address] [place] [address] Social History Tobacco Use Types Packs/Day Years [...] on filedocumented in this encounter Care Teams Sanitation Worker Cleaning Equipment Relationship Specialty Start Date End Date Irma Foley NP PCP - General 05/02/17 03/16/23 documented as of this encounter
--- OUTSIDE RECORDS SUMMARY | 2024-10-26 09:51 | XMS_ITS | Encounter Summary ---
Author Organization [facility] Address [address] [place], [place] [phone] Phone Care Team Providers Care Music Orchestrator Name Role Phone Irma Foley BORDER PATROL OFFICER Primary Care Provider Un available Encounter Details Date Type Department Care Team (Late st Contact Info) Description 06/14/2011 Documentation [facility] Family Medicine [address] [place] [address] Family Medicine, Physician [address] [place] [address] Social History Tobacco Use Types Packs/Day Years [...] on filedocumented in this encounter Care Teams Music Orchestrator Relationship Specialty Start Date End Date Irma Foley NP PCP - General 05/02/17 03/16/23 documented as of this encounter
--- OUTSIDE RECORDS SUMMARY | 2024-10-26 09:51 | XMS_ITS | Encounter Summary ---
Author Organization [facility] Address [address] [place], [place] [phone] Phone Care Team Providers Care Steward/Stewardess Banquet Name Role Phone Irma Foley QC TECH Primary Care Provider Un available Encounter Details Date Type Department Care Team (Late st Contact Info) Description 04/21/2013 Documentation [facility] [place] Family Medicine [address] [place] [address] Family Medicine, Physician [address] [place] [address] Social History Tobacco Use Types Packs/Day Years [...] on filedocumented in this encounter Care Teams Steward/Stewardess Banquet Relationship Specialty Start Date End Date Irma Foley NP PCP - General 05/02/17 03/16/23 documented as of this encounter
--- OUTSIDE RECORDS SUMMARY | 2024-10-26 09:51 | XMS_ITS | Encounter Summary ---
Author Organization [facility] Address [address] [place], [place] [address] Phone Care Team Providers Care Van Driver Helper Name Role Phone Irma Foley PRISON KEEPER Primary Care Provider Un available Encounter Details Date Type Department Care Team (Late st Contact Info) Description 06/14/2011 Documentation [facility] [facility] [place] [address] [place] [address] Family Medicine, Physician [address] [place] [address] Social History Tobacco Use Types Packs/Day Years [...] on filedocumented in this encounter Care Teams Van Driver Helper Relationship Specialty Start Date End Date Irma Foley NP PCP - General 05/02/17 03/16/23 documented as of this encounter
--- OUTSIDE RECORDS SUMMARY | 2024-10-26 09:51 | XMS_ITS | Encounter Summary ---
Author Organization [facility] Address [address] [place], [place] [address] Phone Care Team Providers Care Housing Court Judge Name Role Phone Irma Foley QA ANALYST Primary Care Provider Un available Encounter Details Date Type Department Care Team (Late st Contact Info) Description 04/21/2014 Documentation [facility] [place] [address] [place] [address] Family Medicine, Physician [address] [place] [address] Social History Tobacco Use Types Packs/Day Years [...] on filedocumented in this encounter Care Teams Housing Court Judge Relationship Specialty Start Date End Date Irma Foley NP PCP - General 05/02/17 03/16/23 documented as of this encounter
--- OUTSIDE RECORDS SUMMARY | 2024-10-26 09:51 | XMS_ITS | Encounter Summary ---
Author Organization [facility] Address [address] [place], [place] [phone] Phone Care Team Providers Care Concrete Batch Plant Operator Name Role Phone Irma Foley UTILITY HELICOPTER REPAIRER Primary Care Provider Un available Encounter Details Date Type Department Care Team (Late st Contact Info) Description 06/14/2011 Documentation [facility] [place] [address] [place] [address] Family Medicine, Physician [address] [place] [address] Social History Tobacco Use Types Packs/Day Years [...] on filedocumented in this encounter Care Teams Concrete Batch Plant Operator Relationship Specialty Start Date End Date Irma Foley NP PCP - General 05/02/17 03/16/23 documented as of this encounter
--- OUTSIDE RECORDS SUMMARY | 2024-10-26 09:51 | XMS_ITS | Encounter Summary ---
Author Organization [facility] Address [address] [place], [place] [address] Phone Care Team Providers Care Cigar Packer Name Role Phone Irma Foley PARKS AND RECREATION WORKER Primary Care Provider Un available Encounter Details Date Type Department Care Team (Late st Contact Info) Description 04/21/2015 [place]ation [facility] [place] [address] [place] [address] Family Medicine, Physician [address] [place] [address] Social History Tobacco Use Types Packs/Day Years [...] on filedocumented in this encounter Care Teams Cigar Packer Relationship Specialty Start Date End Date Irma Foley NP PCP - General 05/02/17 03/16/23 documented as of this encounter
--- OUTSIDE RECORDS SUMMARY | 2024-10-26 09:51 | XMS_ITS | Encounter Summary ---
Author Organization [facility] Address [address] [place], [place] [address] Phone Care Team Providers Care Lap Welder Name Role Phone Irma Foley ENVIRONMENTAL HEALTH TECHNOLOGIST Primary Care Provider Un available Encounter Details Date Type Department Care Team (Late st Contact Info) Description 06/14/[address] [facility] [place] Family Medicine [address] [place] [address] Family Medicine, Physician [address] [place] [address] Social History Tobacco Use Types Packs/Day Years [...] on filedocumented in this encounter Care Teams Lap Welder Relationship Specialty Start Date End Date Irma Foley NP PCP - General 05/02/17 03/16/23 documented as of this encounter
--- OUTSIDE RECORDS SUMMARY | 2024-10-26 09:52 | XMS_ITS | Encounter Summary ---
Author Organization [facility] Address [address] [place], [place] [address] Phone Care Team Providers Care Analyzer Sales Name Role Phone Irma Foley DETAIL SUPERVISOR Primary Care Provider Un available Encounter Details Date Type Department Care Team (Late st Contact Info) Description 04/21/2013 Documentation [facility] [place] [address] [place] [address] Family Medicine, Physician [address] [place] [address] Social History Tobacco Use Types Packs/Day Years [...] on filedocumented in this encounter Care Teams Analyzer Sales Relationship Specialty Start Date End Date Irma Foley NP PCP - General 05/02/17 03/16/23 documented as of this encounter
--- OUTSIDE RECORDS SUMMARY | 2024-10-26 09:52 | XMS_ITS | Encounter Summary ---
Author Organization [facility] Address [address] [place], [place] [phone] Phone Care Team Providers Care Ornamental Metal Erector Name Role Phone Irma Foley CIVIL RIGHTS REPRESENTATIVE Primary Care Provider Un available Encounter Details Date Type Department Care Team (Late st Contact Info) Description 06/14/2011 [place] [facility] [place] [address] [place] [address] Family Medicine, Physician [address] [place] [address] Social History Tobacco Use Types Packs/Day Years [...] on filedocumented in this encounter Care Teams Ornamental Metal Erector Relationship Specialty Start Date End Date Irma Foley NP PCP - General 05/02/17 03/16/23 documented as of this encounter
--- OUTSIDE RECORDS SUMMARY | 2024-10-26 09:52 | XMS_ITS | Encounter Summary ---
Author Organization [facility] Address [address] [place], [place] [address] Phone Care Team Providers Care Merchandise Supervisor Name Role Phone Irma Foley SURFACE GRINDER Primary Care Provider Un available Encounter Details Date Type Department Care Team (Late st Contact Info) Description 06/14/2011 Documentation [facility] [place] Family [place] [address] [place] [address] Family Medicine, Physician [address] [place] [address] Social History Tobacco Use Types Packs/Day Years [...] on filedocumented in this encounter Care Teams Merchandise Supervisor Relationship Specialty Start Date End Date Irma Foley NP PCP - General 05/02/17 03/16/23 documented as of this encounter
--- OUTSIDE RECORDS SUMMARY | 2024-10-26 09:52 | XMS_ITS | Encounter Summary ---
Author Organization [facility] Address [address] [place], [place] [address] Phone Care Team Providers Care Contact Center Rep Name Role Phone Irma Foley COMB MACHINE OPERATOR Primary Care Provider Un available Encounter Details Date Type Department Care Team (Late st Contact Info) Description 06/14/2011 Documentation [facility] [place] Family Medicine [address] [place] [address] Family Medicine, Physician [address] [place] [address] Social History Tobacco Use Types Packs/Day Years [...] on filedocumented in this encounter Care Teams Contact Center Rep Relationship Specialty Start Date End Date Irma Foley NP PCP - General 05/02/17 03/16/23 documented as of this encounter
--- OUTSIDE RECORDS SUMMARY | 2024-10-26 09:52 | XMS_ITS | Encounter Summary ---
Author Organization [facility] Address [address] [place], [place] [address] Phone Care Team Providers Care Disk Sander Name Role Phone Iram Foley MEDICAL NUMERICAL CONTROL OPERATOR Primary Care Provider Un available Encounter Details Date Type Department Care Team (Late st Contact Info) Description 06/14/2011 Documentation [facility] [place] Family Medicine [address] [place] [address] Family Medicine, Physician [address] [place] [address] Social History Tobacco Use Types Packs/Day Years [...] on filedocumented in this encounter Care Teams Disk Sander Relationship Specialty Start Date End Date Irma Foley NP PCP - General 05/02/17 03/16/23 documented as of this encounter
--- OUTSIDE RECORDS SUMMARY | 2024-10-26 09:52 | XMS_ITS | Encounter Summary ---
Author Organization [facility] Address [address] [place], [place] [address] Phone Care Team Providers Care Silk Blocker Name Role Phone Irma Foley SENIOR SAFETY SUPPORT MANAGER Primary Care Provider Un available Encounter Details Date Type Department Care Team (Late st Contact Info) Description 04/24/2016 Documentation [facility] [place] Family Medicine [place] [address] Family Medicine, Physician [address] [place] [address] Social History Tobacco Use Types Packs/Day Years Used Date Smoking Tobacco: Never Comments:Never smoker Comments Unknown Sex and Gender Information Value Date Recorded Sex Assigned at Not on file Legal Sex Female 4:57 PM EDT Gender Identity Not on file Sexual Orientation Not on file documented as of this encounter Plan of Treatment Not on file documented as of this encounter Visit Diagnoses Not on filedocumented in this encounter Care Teams Silk Blocker Relationship Specialty Start Date End Date Irma Foley NP PCP - General 05/02/17 03/16/23 documented as of this encounter
--- OUTSIDE RECORDS SUMMARY | 2024-10-26 09:52 | XMS_ITS | Encounter Summary ---
Author Organization [facility] Address [address] [place], [place] [address] Phone Care Team Providers Care Adult Crossing Guard Name Role Phone Irma Foley TRUCK MECHANIC APPRENTICE Primary Care Provider Un available Encounter Details Date Type Department Care Team (Late st Contact Info) Description 06/14/2011 Documentation [facility] [place] [address] [place] [address] Family Medicine, Phys[place] [address] [place] [address] Social History Tobacco Use Types Packs/Day Years [...] on filedocumented in this encounter Care Teams Adult Crossing Guard Relationship Specialty Start Date End Date Irma Foley NP PCP - General 05/02/17 03/16/23 documented as of this encounter
--- OUTSIDE RECORDS SUMMARY | 2024-10-26 09:52 | XMS_ITS | Encounter Summary ---
Author Organization [facility] Address [address] [place] [address] Phone Care Team Providers Care Global Security Architect Name Role Phone Irma Foley WATER TRUCK DRIVER Primary Care Provider Un available Encounter Details Date Type Department Care Team (Late st Contact Info) Description 05/08/2017 Conversion Encounter [facility] - [address] [address] Social History Tobacco Use Types Packs/Day Years [...] on filedocumented in this encounter Care Teams Global Security Architect Relationship Specialty Start Date End Date Irma Foley NP PCP - General 05/02/17 03/16/23 documented as of this encounter
--- OUTSIDE RECORDS SUMMARY | 2024-10-26 09:52 | XMS_ITS | Encounter Summary ---
Author Organization [facility] Address [address] [place], [place] [address] Phone Care Team Providers Care Oil And Gas Well Treatment Operator Name Role Phone Irma Foley COLLAR STITCHER Primary Care Provider Un available Encounter Details Date Type Department Care Team (Late st Contact Info) Description 03/09/2010 Documentation [facility] [place] Family Medicine [address] [place] [address] Family Medicine, Physician [address] [place] [address] Social History Tobacco Use Types Packs/Day Years [...] on filedocumented in this encounter Care Teams Oil And Gas Well Treatment Operator Relationship Specialty Start Date End Date Irma Foley NP PCP - General 05/02/17 03/16/23 documented as of this encounter
--- OUTSIDE RECORDS SUMMARY | 2024-10-26 09:52 | XMS_ITS | Encounter Summary ---
Author Organization [facility] Address [address] [place], [place] [address] Phone Care Team Providers Care Health And Wellness Director Name Role Phone Irma Foley OPERATIONS/DISPATCH Primary Care Provider Un available Encounter Details Date Type Department Care Team (Late st Contact Info) Description 05/30/2011 Documentation [facility] [place] [address] [place] [address] Family Medicine, Physician [address] [place] [address] Social History Tobacco Use Types Packs/Day Years [...] on filedocumented in this encounter Care Teams Health And Wellness Director Relationship Specialty Start Date End Date Irma Foley NP PCP - General 05/02/17 03/16/23 documented as of this encounter
--- OUTSIDE RECORDS SUMMARY | 2024-10-26 09:52 | XMS_ITS | Encounter Summary ---
Author Organization [facility] Address [address] [place], [place] [address] Phone Care Team Providers Care Billiard Table Repairer Name Role Phone Irma Foley MARINE RESOURCE ECONOMIST Primary Care Provider Un available Encounter Details Date Type Department Care Team (Late st Contact Info) Description 02/10/2012 Documentation [facility] [place] Family Medicine [address] [place] [address] Family Medicine, Physician [address] [place] [address] Social History Tobacco Use Types Packs/Day Years [...] on filedocumented in this encounter Care Teams Billiard Table Repairer Relationship Specialty Start Date End Date Irma Foley NP PCP - General 05/02/17 03/16/23 documented as of this encounter
--- OUTSIDE RECORDS SUMMARY | 2024-10-26 09:52 | XMS_ITS | Encounter Summary ---
Author Organization [facility] Address [address] [place], [place] [address] Phone Care Team Providers Care Home Coordinator Name Role Phone Irma Foley CHILD CARE DIRECTOR Primary Care Provider Un available Encounter Details Date Type Department Care Team (Late st Contact Info) Description 04/24/2016 Documentation [facility] [place] [facility] [place] [address] Family Medicine, Physician [address] [place] [address] Social History Tobacco Use Types Packs/Day Years [...] on filedocumented in this encounter Care Teams Home Coordinator Relationship Specialty Start Date End Date Irma Foley NP PCP - General 05/02/17 03/16/23 documented as of this encounter
--- OUTSIDE RECORDS SUMMARY | 2024-10-26 09:52 | XMS_ITS | Encounter Summary ---
Author Organization [facility] Address [address] [place], [place] [address] Phone Care Team Providers Care Business Planning Analyst Name Role Phone Irma Foley INVENTORY SPECIALIST MANAGER Primary Care Provider Un available Encounter Details Date Type Department Care Team (Late st Contact Info) Description 04/24/2015 Documentation [facility] [place] [address] [place] [address] Family Medicine, Physician [address] [place] [address] Social History Tobacco Use Types Packs/Day Years [...] on filedocumented in this encounter Care Teams Business Planning Analyst Relationship Specialty Start Date End Date Irma Foley NP PCP - General 05/02/17 03/16/23 documented as of this encounter
--- OUTSIDE RECORDS SUMMARY | 2024-10-26 09:52 | XMS_ITS | Encounter Summary ---
Author Organization [facility] Address [address] [place], [place] [phone] Phone Care Team Providers Care Central Supply Aide Name Role Phone Irma Foley CRYPTOGRAPHER Primary Care Provider Un available Encounter Details Date Type Department Care Team (Late st Contact Info) Description 04/24/[address] [facility] [place] Family Medicine [address] [place] [address] Family Medicine, Physician [address] [place] [address] Social History Tobacco Use Types Packs/Day Years [...] on filedocumented in this encounter Care Teams Central Supply Aide Relationship Specialty Start Date End Date Irma Foley NP PCP - General 05/02/17 03/16/23 documented as of this encounter
--- OUTSIDE RECORDS SUMMARY | 2024-10-26 09:52 | XMS_ITS | Encounter Summary ---
Author Organization [facility] Address [address] [place], [place] [address] Phone Care Team Providers Care Electroencephalographic Technologist Name Role Phone Irma Foley CHANGEOVER OPERATOR Primary Care Provider Un available Encounter Details Date Type Department Care Team (Late st Contact Info) Description 02/10/2012 Documentation [facility] [place] Family Medicine [address] [place] [address] Family Medicine, Physician [address] [place] [address] Social History Tobacco Use Types Packs/Day Years [...] on filedocumented in this encounter Care Teams Electroencephalographic Technologist Relationship Specialty Start Date End Date Irma Foley NP PCP - General 05/02/17 03/16/23 documented as of this encounter
--- OUTSIDE RECORDS SUMMARY | 2024-10-26 09:52 | XMS_ITS | Encounter Summary ---
Author Organization [facility] Address [address] [place], [place] [address] Phone Care Team Providers Care Manager Federal Name Role Phone Irma Foley INSPECTOR PRECISION ASSEMBLY Primary Care Provider Un available Encounter Details Date Type Department Care Team (Late st Contact Info) Description 06/14/2011 Documentation [facility] [place] Family Medicine [address] [place] [address] Family Medicine, Physician [address] [place] [address] Social History Tobacco Use Types Packs/Day Years [...] on filedocumented in this encounter Care Teams Manager Federal Relationship Specialty Start Date End Date Irma Foley NP PCP - General 05/02/17 03/16/23 documented as of this encounter
--- OUTSIDE RECORDS SUMMARY | 2024-10-26 09:52 | XMS_ITS | Clinical Summary ---
Author Organization [facility] Address [address] [place] [address] Phone Care Team Providers Care Regional Manager Name Role Phone Unavailable Primary Care Provider Unavailabl e Allergies No known active allergies Medications No known medications Active Problems Problem Noted Date Diagnosed Date Influenza vaccine refused 10/06/2018 Overview (10/06/2018): Offered and refused at 10/06/2018 - T Assessment & Plan (10/06/2018 11:11 AM EST): Counseled that she can return at any time to get the flu vaccine, counseling offered, questions answered - T Immunizations Name Administration Dates Next Due DTP 01/23/1999 DTaP 5 11/29/2002, 0,06/12/1999, 999 Hep A, ped/adol 04/21/2015,04/19/2014 Hep B, ped/adol 06/12/1999,01/23/1999,1998 Hib (PRP-T) 03/24/2000, 9,03/30/1999, 999 IPV 11/29/2002, 0,03/30/1999, 999 MMR 11/29/2002,11/19/1999 Meningococcal Conj (Menactra) MCV4P 04/21/2015,0 01/22/2011 Tdap 01/22/2011 Varicella 05/28/2011,11/19/1999 Family History Medical History Relation Name Comments Asthma Father David No Known Problems Maternal Grandfather Alcoholism Maternal Grandmother No Known Problems Mother Suzy Alcoholism Paternal Grandfather Alcoholism Paternal Grandmother No Known Problems Sister Sabree Relation Name Status Comments Father David Alive Father: Asthma Maternal Grandfather Alive Maternal Grandmother Alive Materna l grandmother: , ETOH abuse Mother Suzy Alive Mother: Alive a nd well Paternal Grandfather Paterna l grandfather: Sudden /[place] under age 55, Paternal Grandmother Sister Sabree Alive Sister: Alive a nd well Social History Tobacco Use Types Packs/Day Years Used Date Smoking Tobacco: Never Smokeless Tobacco: Never Tobacco Cessation:Counseling Given: Yes Comments:Never smoker Alcohol Use Standard Drinks/Week Comments No 0 (1 standard drink = 0.6 oz pur e alcohol) Hunger/Food Answer Date Recorded No 10/06/2018 Stable Housing Answer Date Recorded 0 10/06/2018 Transportation Concerns Answer Date Rec orded No 10/06/2018 Hazards in Home Answer Date Recorded No 10/06/2018 Financing Utilities Answer Date Recorde d No 10/06/2018 Safety at Home Answer Date Recorded No 10/06/2018 Outside Support Answer Date Recorded No 10/06/2018 Understanding Health Concerns Answer Da te Recorded No 10/06/2018 Financing Health Concerns Answer Date R ecorded No 10/06/2018 Missing School or Work Answer Date Alessandro rded No 10/06/2018 Comments No Sex and Gender Information Value Date Recorded Sex Assigned at Not on file Legal Sex Female 4:57 PM EDT Gender Identity Not on file Sexual Orientation Not on file Last Filed Vital Signs Vital Sign Reading Time Taken Comments Blood Pressure 105/62 10/06/2018 10:46 AM EST Pulse 84 10/06/2018 10:46 AM EST Temperature 36.6 ??C (97.9 ??F) 10/06/2018 10:[address] Respiratory Rate - - Oxygen Saturation - - Inhaled Oxygen Concentration - - Weight 66.2 kg (146 lb) 10/06/2018 10:46 AM EST Height 164.5 cm (5' 4.75 ) 10/06/2018 10:[address] Body Mass Index 24.48 10/06/2018 10:46 AM EST Plan of Treatment Health Maintenance Due Date Last Done Comments HPV Vaccines (1 - 3-dose series) 2013 DTaP,Tdap,and Td Vaccines (7 - Td or Tdap) 01/22/2021 01/22/2011, 11/29/2002, 05/30/2000, Additional history exists Influenza Vaccines (#1) 2024 COVID-19 Vaccine ( season) 2024 Hepatitis B Vaccines Completed 06/12/1999, 01/23/1999, 1998 HIB Vaccines Completed 03/24/2000, 05/24, 03/30/1999, Additional history exists IPV Vaccines Completed 11/29/2002, 10/24, 03/30/1999, Additional history exists MMR Vaccines Completed 11/29/2002, 11/19/1999 Varicella Vaccines Completed 05/28/2011, 11/19/1999 Hepatitis A Vaccines Completed 04/21/2015, 04/19/20 14 Meningococcal Vaccine Completed 04/21/2015, 011 Men B Vaccine Aged Out No longer elig ible based on patient's age to complete this topic Pneumococcal Vaccine Aged Out No long er eligible based on patient's age to complete this topic Procedures * Due to [facility] law, this organization might not be sharing sensitive test results. Procedure Name Priority Date/Time Associated Diagnosis Comments CHLAMYDIA AND GONORRHEA, AMPLIFIED Routine 10/06/2018 10:48 AM EST Special screening for bacterial and spirochetal disease from Last 3 Months or Most Recently Relevant to Health Maintenance Results * Due to [place] [employer] law, this organization might not be sharing sensitive test results. * Chlamydia and Gonorrhoea, Amplified (10/06/2018 10:48 AM EST) Chlamydia Trachomatis, DNA Probe NEGATIVE (NEG) [facility] Comment: No Chlamydia Trachomatis RNA detected in this patient's sample ? (REFERENCE RANGE/NORMAL VALUE: NOT DETECTED) ? Note: This test uses imaging tech- mediated amplification method to detect rRNA from C. Trachomatis URINE GC AMP PROBE NEGATIVE (NEG) [facility] Comment: No Neisseria Gonorrhoeae RNA detected in this patient's sample ? (REFERENCE RANGE/NORMAL VALUE: NOT DETECTED) ? NOTE: This test uses imaging tech-mediated amplification method to detect rRNA from N.Gonorrhoeae. A negative result does not preclude infection. In the case of a negative urine result, testing of an endocervical(female) or urethral (male) specimen is recommended if there is high clinical suspicion of infection. Due to very high sensitivity of Nucleic Acid Amplification Test, false positive results may occur. Therefore, specimen handling is extremely important. In patients in whom the disease is unlikely, additional sample for testing should be considered after an initial positive result. The performance characteristics of this test have not been evaluated in children. The Aptima Combo2 assay is not intended for the evaluation of suspected sexual abuse or for other medico-legal indications. The ordering provider should assess if the patient had consensual sex without risk of sexual abuse. Consult the [facility] if needed. Contact phone number . Therapeutic failure or success cannot be determined with the Aptima Combo2 assay since nucleic acid may persist following appropriate antimicrobial therapy. The Centers for Disease Control and Prevention (CDC) recommends confirmatory retesting using culture or a different nucleic acid amplification test when positive results occur, if indicated. Testing performed or reported by [facility], a Service of [facility], [facility] [place] [address] [facility] [id number] Markus Brown MD, Printed Circuit Board Panels Developer Urine 10/06/2018 10:4 8 AM EST 10/07/2018 12:15 AM EST us Irma Foley NP LAB MICROBIOLOGY - GENERA L ORDERABLES Final Result Performing Organization Address City/State/[place] Co de Phone Number [facility] from Last 3 Months or Most Recently Relevant to Health Maintenance Insurance [facility] NON PCC
--- OUTSIDE RECORDS SUMMARY | 2024-10-26 09:52 | XMS_ITS | Encounter Summary ---
Author Organization [facility] Address [address] [place], [place] [phone] Phone Care Team Providers Care Search Engine Marketing Specialist Name Role Phone Irma Foley PEER HEALTH PROMOTER Primary Care Provider Un available Encounter Details Date Type Department Care Team (Late st Contact Info) Description 12/25/2015 Documentation [facility] [place] [address] [place] [address] Family Medicine, Physician [address] [place] [address] Social History Tobacco Use Types Packs/Day Years [...] on filedocumented in this encounter Care Teams Search Engine Marketing Specialist Relationship Specialty Start Date End Date Irma Foley NP PCP - General 05/02/17 03/16/23 documented as of this encounter
--- OUTSIDE RECORDS SUMMARY | 2024-10-26 09:52 | XMS_ITS | Encounter Summary ---
Author Organization [facility] Address [address] [place], [place] [address] Phone Care Team Providers Care Timber Surveyor Name Role Phone Irma Foley CLINICAL ADMISSIONS MANAGER Primary Care Provider Un available Encounter Details Date Type Department Care Team (Late st Contact Info) Description 04/24/[address] [facility] [place] Family [place] [address] Family Medicine, Physician [address] [place] [address] Social History Tobacco Use Types Packs/Day Years [...] on filedocumented in this encounter Care Teams Timber Surveyor Relationship Specialty Start Date End Date Irma Foley NP PCP - General 05/02/17 03/16/23 documented as of this encounter
--- OUTSIDE RECORDS SUMMARY | 2024-10-26 09:52 | XMS_ITS | Encounter Summary ---
Author Organization [facility] Address [address] [place], [place] [address] Phone Care Team Providers Care Cigarette And Filter Chief Inspector Name Role Phone Irma Foley IC DESIGNER GATE ARRAYS Primary Care Provider Un available Encounter Details Date Type Department Care Team (Late st Contact Info) Description 06/14/2011 Documentation [facility] [place] [facility] [place] [address] [place] [address] Family Medicine, Physician [address] [place] [address] Social History Tobacco Use Types Packs/Day Years [...] on filedocumented in this encounter Care Teams Cigarette And Filter Chief Inspector Relationship Specialty Start Date End Date Irma Foley NP PCP - General 05/02/17 03/16/23 documented as of this encounter
== END 2024-10-26 10:06 | disposition home or self-care (01) ==
PROVIDERS: PCP Nurse Practitioner Family; Visit Provider Advanced Practice Midwife
DX: Z01.419 Encounter for gynecological examination (general) (routine) without abnormal findings (principal)
CPT/HCPCS: 99385; 99459

== ENCOUNTER 2024-10-26 10:54 | Outpatient (REF) | payer OTHER, SELFPAY | END 2024-10-26 10:55 | disposition home or self-care (01) | LOC: HO.LNP 10:54 | PROVIDERS: Visit Provider Advanced Practice Midwife | DX: Z01.419 Encounter for gynecological examination (general) (routine) without abnormal findings (principal); N89.8 Other specified noninflammatory disorders of vagina | CPT/HCPCS: 88175 ==

== ENCOUNTER 2025-09-06 11:50 | Outpatient (REF) | payer OTHER, SELFPAY ==
[2025-09-06 16:16] LABS: Hematocrit 40.6 % (37.0-47.0); Hemoglobin 13.7 g/dl (12.0-16.0); Mean Corpuscular HGB Conc 33.7 g/dl (31.0-35.0); Mean Corpuscular Hemoglobin 30.9 pg (27.0-33.0); Mean Corpuscular Volume 91.6 fL (80.0-98.0); NRBC Abs Auto 0.000 X10*3/uL (0.0-0.012); NRBC Pct Auto 0.0 /100WBC (0.0-0.2); Platelet Count 175 X10*3/uL (160-400); Red Blood Count 4.43 X10*6/uL (4.20-5.50); White Blood Count 6.1 X10*3/uL (4.8-10.8)
[2025-09-06 16:51] LABS: Alanine Aminotransferase 51 U/L (0-31); Albumin Level 4.3 g/dL (3.5-5.0); Alkaline Phosphatase 49 U/L (39-117); Anion Gap 10 (12-20); Aspartate Amino Transferase 29 U/L (5-31); Blood Urea Nitrogen 20 mg/dL (9-16); Calcium 9.1 mg/dL (8.4-10.2); Carbon Dioxide 24 mmol/L (22-29); Chloride 108 mmol/L (96-108); Cholesterol 253 mg/dL (<200); Estimated Glomerular Filt Rate > 60; HDL Cholesterol 77 mg/dL (>40); Potassium 4.1 mmol/L (3.3-5.1); Sodium 138 mmol/L (135-145); Total Protein 6.8 g/dL (6.5-8.0); Triglycerides 76 mg/dL (<150)
[2025-09-06 17:14] LABS: Folate 10.0 ng/mL (> or = 4.0); Vitamin B12 435 pg/mL (200-900)
== END 2025-09-06 11:51 | disposition home or self-care (01) ==
LOC: HO.WFDLDS 11:50
PROVIDERS: PCP Nurse Practitioner Family; Visit Provider Nurse Practitioner Family
DX: Z00.00 Encounter for general adult medical examination without abnormal findings (principal); Z12.4 Encounter for screening for malignant neoplasm of cervix; Z30.09 Encounter for other general counseling and advice on contraception; Z28.21 Immunization not carried out because of patient refusal; J30.2 Other seasonal allergic rhinitis; Z80.3 Family history of malignant neoplasm of breast
CPT/HCPCS: 36415; 80053; 80061; 82043; 82306; 82570; 82607; 82746; 83036; 84443; 85027; 96127; 99395

== ENCOUNTER 2025-09-06 11:50 | Outpatient (AMB) | payer OTHER, SELFPAY ==
--- NOTE | 2025-09-06 11:55 | A.OFFPC_ITS ---
Vital Signs 09/06/25 11:57 Height 5 ft 4 in Weight 169 lb 6 oz BMI 29.1 BP 108/68 Blood Pressure Location Lt brachial Position Sitting Respiration 12 Pulse 69 Pulse Source Pulse Oximeter Temp 97.8 F Temp Source Oral Pulse Oximetry (%) 99 Oxygen Delivery Method Room Air Intake Visit Reasons: CPE PHQ-9 needed. 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 Required: No Allergies No Known Allergies Allergy (Verified 09/06/25 12:08) Medication List - Last Reconciled 09/06/25 by KATEY Schaeffer No Known Home Meds Tobacco use date assessed: 09/06/25 Dental Screening Dental Screen Date: 09/06/25 Did you have a dental visit in the last 12 months?: Yes Did you have a dental problem in the last 6 months where you did not have access to dental care?: No Was dental information given to patient?: Patient has dentist HPI HPI Comments History of Present Illness Details 24 y/o F with seasonal allergies, fhx [facility] Surgery: None Familyhx: Paternal side substance abuse; Maternal great aunt breast cancer dx < age 50 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 No pets. Health Maintenance: Tdap declined Pap 10/2024 Flu declined Specialists: [facility] [place] [facility] History of Present Illness The patient is a 24-year-old female presenting for a physical exam. Seasonal allergies: - The patient has a past medical history of seasonal allergies, which she reports have been fine this year. Health Maintenance: - The patient is due for an annual physi neto exam. - She had a normal Pap smear 10/2024 - The patient does not take any medicati ons. - She has no history of surgeries and no known drug allergies. - There have been no changes to her fami ly medical history. - She declined a Tdap vaccination and a flu shot. Preconception Counseling: - The patient is considering a fter her wedding next year. Past Medical History - Seasonal allergies Past Surgical History - No history of surgeries. Family History - No changes in family medical history r eported. 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 - Marital status: The patient is engaged and planning her wedding. - Family planning: She is considering ge tting after her wedding. - Mood: The patient reports her mood is good. Health Maintenance - Pap smear: The patient had a normal Pa p smear last year with her RADIOSONDE SPECIALIST. - The patient performs self-breast exams . - Vaccinations: The patient declined the Tdap and flu shots. - Screening labs were ordered to check f or diabetes, anemia, kidney disease, cholesterol, thyroid function, B12, and vitamin D. - If screening labs are normal, they mayo l not need to be repeated until age 30. Review of Systems - General: Denies feeling weak or faint. - HEENT: Denies hearing problems. - Neck: Denies pain or discomfort with s wallowing. - Skin: Denies worries, changes, or conc erns regarding her skin. - Gastrointestinal: Reports normal bowel and bladder function. Denies abdominal pain or tenderness. - Breasts: Reports performing self-breas t exams. - Musculoskeletal: Denies pain or marlys g on straight leg raise. Denies foot or ankle injuries. - Psychiatric: Reports good mood. Physical Exam General: Well developed, well nourished, in no acute distress. Appears stated age. Head: Normocephalic, atraumatic. Eyes: Pupils are equal, round and reactive to light and accommodation. Conjunctivae are clear. Scleras nonicteric bilat. Vision grossly normal. Ears: TMs clear AU, EACS WNL. No problems with hearing. Nose: Patent, without discharge. Neck: No carotid bruit bilat. Supple, no adenopathy or thyromegaly. No pain or discomfort noted. Breast: Edu on SBE. Patient performs self breast exams. Lungs: Clear to auscultation bilaterally. No rales, rhonchi or wheeze noted. Good air flow in all garcia. Heart: Regular rate and rhythm. No murmurs, click, rubs or gallops are noted. Abdomen: Bowel sounds present in all quadrants. The abdomen is soft, nontender, with no masses or organomegaly noted. No hernias are noted. Patient reports normal bowel and bladder function. : Deferred. 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 Pulses: Peripheral pulses are equal and palpable bilaterally. Extremities: No clubbing, cyanosis nor edema is noted. No open areas, sores, or rashes on feet or ankles. Neurologic: Gait and station normal. Cranial Nerves 2-12 intact. Motor strength grossly symmetrical and intact. No sensory loss. Balance normal. Skin: No rashes, ulcers, or lesions noted. Turgor is good. Skin color is good. Hair and nails are without abnormalities. No changes or concerns for skin. Psych: Normal eye contact, affect and mood appropriate, and normal interactions. Patient is alert and appropriate to context. Mood is reported as good. Results Medical Decision Making The patient is a healthy 24-year-old female here for a routine physical exam. Her exam is unremarkable, and she has no active medical complaints. She has a history of seasonal allergies, which are currently well-controlled. Given her age and good health, baseline screening labs were offered to screen for anemia, diabetes, kidney disease, dyslipidemia, thyroid dysfunction, and vitamin deficiencies (B12 and D). The patient agreed to the blood draw. I anticipate the results will be normal, in which case we will not need to repeat them until she is 28. We discussed preconception health as she is considering after her wedding. I recommended starting an dbgo-zte-ofbyrdm vitamin, explaining the benefits for both her and a potential baby. We also discussed her current RADIOSONDE SPECIALIST provider and the need to consider a provider who handles deliveries if she wishes for continuity of care through and . I offered to place a referral if she decides to switch providers. The patient declined the Tdap and influenza vaccinations during this visit. She will schedule a follow-up visit for her next annual physical in one year. Plan 1. Encounter For General Adult Medical E xamination - The patient presented for a routine ph ysical exam and is in good health. - General wellness instructions provided . - Baseline screening labs were ordered f or diabetes, anemia, kidney disease, cholesterol, thyroid, vitamin B12, and vitamin D. - The patient declined Tdap and flu vacc inations. - Follow-up scheduled for an annual phys ical in one year. 2. Seasonal Allergies - The patient reports her seasonal aller gies have been fine this year and require no acute intervention. 3. Preconception Counseling - The patient is considering a fter her wedding. - Recommended starting an abda-nlm-hjfmc er vitamin. - Discussed that her current RADIOSONDE SPECIALIST grou p does not perform deliveries and advised her to consider switching to a provider who can manage the entire and delivery. - Offered to place a referral for a new RADIOSONDE SPECIALIST if she chooses to switch. Patient Instructions - You will get your blood drawn today fo r screening tests. The results will be available on the patient portal later today, and I will also send you a message with feedback. - If you have never had your blood drawn before, let the optical coating technician know. You can lie down during the procedure if needed. - If your lab results are normal, you wi ll not need them checked again until you are 30 years old, unless needed for . - Consider starting an ztki-jeh-jglzxmo vitamin, as it is beneficial to start before you become . - Your current RADIOSONDE SPECIALIST office does not de liver babies. If you would like to have one doctor for your entire and delivery, you will need to find a new provider. Please send me a message through the portal if you would like me to put in a referral. - Please stop at the front end engineer to sched ule your next annual physical exam for one year from now. Consent The patient provided verbal consent for screening blood work after the tests and their purpose were explained. Patient was informed and verbally consented to the use of an ambient scribe for clinic note documentation during this visit. [facility] Medical History No pertinent past medical history Surgical History No pertinent past surgical history Family History Paternal Grandmother Substance abuse Maternal Grandmother Cancer Diabetes Social History Household Members: Significant Other Both parents involved: No Caregiver staying overnight: No Housing: Apartment Are you a primary doggy daycare activities director to a significant other at home: No Do you presently have visiting nurse or other home services: No 75 years or older and lives alone: No Alcohol intake: current Alcohol intake frequency: a few times a month Patient Tobacco Use Status: Never used Tobacco e-Cigarette/Vaping Use: Never Used Second Hand Smoke Exposure: No service: No Current occupational status: employed 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 1. Little interest or pleasure in doing things: not at all 2. Feeling down, depressed, or hopeless: not at all 3. Trouble falling or staying asleep, or sleeping too much: not at all 4. Feeling tired or having little energy: not at all 5. Poor appetite or overeating: not at all 6. Feeling bad about yourself - or that you are a failure or have let yourself or your family down: not at all 7. Trouble concentrating on things, such as reading the newspaper or watching television: not at all 8. Moving or speaking so slowly that other people could have noticed. Or the o pposite - being so fidgety or restless that you have been moving around a lot more than usual: not at all 9. Thoughts that you would be better off or of hurting yourself in some way: not at all Total score: 0 Depression Screening Interpretation: Negative Depression Screening Done: Yes 47610 - PHQ-9 Billing: Yes Source: Developed by Drs. Leodan Mar, Ramya Pineda, Sae Thomas and colleagues, with an educational ernst from [employer]. Thrive Questionnaire Date Thrive assessed: 09/06/25 I am a: Patient What is your living situation today?: I have a steady place to live Within the past 12 months, did the food you bought not last and you didn't have the money to get more?: Never true Within the past 12 months, did you worry whether your food would run out before you got money to buy more?: Never true Do you have trouble paying for medicines?: No Do you have trouble getting transportation to medical appointments?: No Do you have trouble paying your heating and electricity bill?: No Do you have trouble taking care of your child, family member or friend?: No Do you have trouble with day-to-day activities such as bathing, preparing meals, shopping, managing finances, etc.?: No Are you currently unemployed and looking for a job?: No Are you interested in more education?: No Please select the resources that you would like help with: None Currently or been in a relationship where the following occur: No concerns reported THRIVE Score: 0 AUDIT C Alcohol Use Questionnaire (AUDIT-C) 1. How often do you have a drink containing alcohol?: 2-4 times a month 2. How many drinks containing alcohol do you have on a typical day when you are drinking?: 1 or 2 3. How often do you have six or more drinks on one occasion?: Never Total Score: 2 Score Reviewed/Action Taken: Yes RUBÉN-7 AMB Questionnaire RUBÉN-7 Date RUBÉN - 7 assessed: 09/06/25 Feeling nervous, anxious, or on edge: 0 = Not at all Not being able to stop or control worryin = Not at all Worrying too much about different things: 0 = Not at all Trouble relaxin = Not at all Being so restless that it is hard to sit still: 0 = Not at all Becoming easily annoyed or irritable: 0 = Not at all Feeling afraid as if something awful might happen: 0 = Not at all Total RUBÉN-7 score (0-4 normal; 5-9 mild; 10-14 moderate; 15-21 severe): 0 Source: Developed by Drs. Leodan Mar, Ramya Pineda, Sae Thomas and colleagues, with an educational ernst from [employer]. RUBÉN-7 Assessment Billing RUBÉN-7 Assessment Tool: RUBÉN-7 Assessment 51929 Physical exam (Primary Care) Vital Signs: Last Vital Signs Temp 97.8 F 09/06/25 11:57 Pulse 69 09/06/25 11:57 Resp 12 09/06/25 11:57 BP 108/68 09/06/25 11:57 Pulse Ox 99 09/06/25 11:57 Oxygen Delivery Method Room Air 09/06/25 11:57 BMI result Body Mass Index 29.1 Tobacco/Smoking Status: Tobacco use Status Tobacco use date assessed 09/06/25 09/06/25 11:59 Patient Tobacco Use Status Never used Tobacco 09/06/25 11:59 e-Cigarette/Vaping Use Never Used 09/06/25 11:59 PHQ-9: PHQ-9 Score PHQ-9: Total score 0 09/06/25 11:59 Depression Screening Interpretation: Negative Thrive Assessment: Date of Thrive Assessment Date Thrive assessed 09/06/25 09/06/25 11:59 Currently or been in a relationship where the following occur: No concerns reported Coding Level of Care Code Est Pt Prev Care 18-39y(81122) Add On Preventative Visit Only Diagnoses Encounter for general adult medical examination without abnormal findings Z00.00 Laboratory exam ordered as part of routine general medical examination Z00.00 Cervical cancer screening Z12.4 Family planning education, guidance, and counseling Z30.09 Seasonal allergies J30.2 Influenza vaccination declined Z28.21 Tetanus, diphtheria, and acellular pertussis (Tdap) vaccination declined Z28.21 Family history of breast cancer Z80.3 Additional Codes RUBÉN-7 Assessment Billing - RUBÉN-7 Assessment Tool: RUBÉN-7 Assessment 39294 ([id number]) PHQ-9 - 31935 - PHQ-9 Billing: Yes ([id number]) Assessment & Plan Assessment & Plan (1) Encounter for general adult medical examination without abnormal findings: Onset Date: ~09/06/25 Code(s): Z00.00 - Encounter for general adult medical examination without abnormal findings Category: Medical (2) Laboratory exam ordered as part of routine general medical examination: Code(s): Z00.00 - Encounter for general adult medical examination without abnormal findings Category: Medical (3) Cervical cancer screening: Onset Date: ~10/2024 Comment: 10/26/2024 Pap smear is negative. Code(s): Z12.4 - Encounter for screening for malignant neoplasm of cervix Category: Medical (4) Family planning education, guidance, and counseling: Code(s): Z30.09 - Encounter for other general counseling and advice on contraception Category: Medical (5) Seasonal allergies: Code(s): J30.2 - Other seasonal allergic rhinitis Category: Medical (6) Influenza vaccination declined: Onset Date: ~09/06/25 Code(s): Z28.21 - Immunization not carried out because of patient refusal Category: Medical (7) Tetanus, diphtheria, and acellular pertussis (Tdap) vaccination declined: Onset Date: ~09/06/25 Code(s): Z28.21 - Immunization not carried out because of patient refusal Category: Medical (8) Family history of breast cancer: Comment: Maternal great aunt breast cancer dx < age 50 Code(s): Z80.3 - Family history of malignant neoplasm of breast Category: Medical Plan . Orders: Orders Lipid Panel Today Z00.00 - Encounter for general adult medical examination without abnormal findings TSH reflex Free T4 Today Z00.00 - Encounter for general adult medical examination without abnormal findings Complete Blood Count no Diff Today Z00.00 - Encounter for general adult medical examination without abnormal findings Comprehensive Met. Panel Today Z00.00 - Encounter for general adult medical examination without abnormal findings Hemoglobin A1c Today Z00.00 - Encounter for general adult medical examination without abnormal findings Microalbumin, Random (w Creat) Today Z00.00 - Encounter for general adult medical examination without abnormal findings Vitamin B12 and Folate Today Z00.00 - Encounter for general adult medical examination without abnormal findings Vitamin D 25-OH Total Today Z00.00 - Encounter for general adult medical examination without abnormal findings Patient Instructions: Health screenings for women You should visit your health care provider from time to time, even if you are healthy. The purpose of these visits is to: Screen for medical issues Assess your risk for future medical problems Encourage a healthy lifestyle Update vaccinations and other preventive care services Help you get to know your provider in case of an illness Information Even if you feel fine, you should still see your provider for regular checkups. These visits can help you avoid problems in the future. For example, the only way to find out if you have high blood pressure is to have it checked regularly. High blood sugar and high cholesterol levels also may not have any symptoms in the early stages. A simple blood test can check for these conditions. There are specific times when you should see your provider or receive specific health screenings. The [place] Preventive Services Task Force publishes a list of recommended screenings. Below are screening guidelines for women ages 18 to 39. BLOOD PRESSURE SCREENING Your blood pressure should be checked at least once every 3 to 5 years if: Your blood pressure is in the normal range (top number less than 120 mm Hg and bottom number less than 80 mm Hg) You don't have risk factors for high blood pressure Ask your provider if you need your blood pressure checked more often if: The top number is 120 to 129 mm Hg or the bottom number is 70 to 79 mm Hg You have diabetes, heart disease, kidney problems, are overweight, or have certain other health conditions You have a first-degree relative with high blood pressure You are Black You had high blood pressure during a If the top number is 130 mm Hg or greater or the bottom number is 80 mm Hg or greater, this is considered stage 1 hypertension. Schedule an appointment with your provider to learn how you can reduce your blood pressure. Watch for blood pressure screenings in your area. Ask your provider if you can stop in to have your blood pressure checked. BREAST CANCER SCREENING Experts do not agree about the benefits of breast self-exams in finding breast cancer or saving lives. Talk to your provider about what is best for you. A screening mammogram is not recommended for most women under age 40. Your provider may discuss and recommend mammograms, MRI scans, or ultrasounds if you have an increased risk for breast cancer, such as: A mother or sister who had breast cancer at a young age (most often starting screening earlier than the age the close relative was diagnosed) You carry a high-risk genetic marker CERVICAL CANCER SCREENING Cervical cancer screening should start at age 21 years unless your provider advises otherwise. After the first test: Women ages 21 through 29 should have a Pap test every 3 years. Exoprts do not agree on whether HPV testing is recommended for this age group. Women ages 30 through 65 should be screened with either a Pap test every 3 years or the HPV test every 5 years or both tests every 5 years (called cotesting ). Women who have been treated for precancer (cervical dysplasia) should continue to have Pap tests for 20 years after treatment or until age 65, whichever is longer. If you have had your uterus and cervix removed (total hysterectomy), and you have not been diagnosed with cervical cancer or precancer (high grade cervical neoplasia), you do not need cervical cancer screening. CHOLESTEROL SCREENING Cholesterol screening should begin at: Age 45 for women with no known risk factors for coronary heart disease Age 20 for women with known risk factors for coronary heart disease Repeat cholesterol screening should take place: Every 5 years for women with normal cholesterol levels More often if changes occur in lifestyle (including weight gain and diet) More often if you have diabetes, heart disease, kidney problems, or certain other conditions DIABETES SCREENING You should be screened for diabetes starting at age 35 and then repeated every 3 years if you have no risk factors for diabetes. Screening may need to start earlier and be repeated more often if you have other risk factors for diabetes, such as: You have a first degree relative with diabetes. You are overweight or have obesity. You have high blood pressure, prediabetes, or a history of heart disease. Screening for diabetes should be done if you are planning to become and you are overweight and have other risk factors such as high blood pressure. DENTAL EXAM Go to the dentist once or twice every year for an exam and cleaning. Your dentist will evaluate if you need more frequent visits. EYE EXAM Have an eye exam every 5 to 10 years before age 40. If you have vision problems, have an eye exam every 2 years or more often if recommended by your provider. You should have an eye exam that includes an examination of your retina (back of your eye) at least every year if you have diabetes. IMMUNIZATIONS Commonly needed vaccines include: Flu shot: get one every year. COVID-19 vaccine: ask your provider what is best for you. Tetanus-diphtheria and acellular pertussis (Tdap) vaccine: have one at or after age 19 as one of your tetanus-diphtheria vaccines if you did not receive it as an adolescent. Tetanus-diphtheria: have a booster (or Tdap) every 10 years. Varicella vaccine: receive 2 doses if you never had chickenpox or the varicella vaccine. Hepatitis B vaccine: receive 2, 3, or 4 doses, depending on your exact circumstances. Measles, mumps, and rubella (MMR) vaccine: receive 1 to 2 doses if you are not already immune to MMR. Your provider can tell you if you are immune. Ask your provider about the human papillomavirus (HPV) vaccine if: You have not received the HPV vaccine in the past You have not completed the full vaccine series (you should catch up on this shot) Ask your provider if you should receive other immunizations if you have certain health problems that increase your risk for some diseases such as pneumonia. INFECTIOUS DISEASE SCREENING Women who are sexually active should be screened for chlamydia and gonorrhea up until age 25. Women 25 years and older should be screened for chlamydia and gonorrhea if at high risk. Screening for hepatitis C: All adults ages 18 to 79 should get a one-time test for hepatitis C. people should be screened at every . Screening for human immunodeficiency virus (HIV): All people ages 15 to 65 should get a one-time test for HIV. Depending on your lifestyle and medical history, you may also need to be screened for infections such as syphilis and HIV, as well as other infections. PHYSICAL EXAM All adults should visit their provider from time to time, even if they are healthy. The purpose of these visits is to: Screen for disease Assess your risk of future medical problems Encourage a healthy lifestyle Update your vaccinations and other preventive care services Maintain a relationship with a provider in case of an illness Your height, weight, and BMI should be checked at every exam. During your exam, your provider may ask you about: Depression and anxiety Diet and exercise Alcohol and tobacco use Safety issues, such as using seat belts, smoke detectors, and intimate partner violence Your medicines and risk for interactions SKIN SELF-EXAM Your provider may check your skin for signs of skin cancer, especially if you're at high risk, such as if you: Have had skin cancer before Have close relatives with skin cancer Have a weakened immune system OTHER SCREENING Talk with your provider about colon cancer screening if you have a strong family history of colon cancer or polyps, or if you have had inflammatory bowel disease or polyps yourself. Routine bone density screening of women under 40 is not recommended.
[2025-09-06 11:57] VITALS: BP 108/68; PULSE 69; RESP 12; TEMP 36.6; O2SAT 99; BMI 29.1
--- OUTSIDE RECORDS SUMMARY | 2025-09-06 15:42 | XMS_ITS | Encounter Summary ---
Author Organization [facility] Address [address] [place], [place] [phone] Phone Care Team Providers Care Dental Laboratory Technician Apprentice Name Role Phone Irma Foley TIMBER BUYER Primary Care Provider Un available Encounter Details Date Type Department Care Team (Late st Contact Info) Description 12/25/2015 Documentation [facility] [place] Family Medicine [address] [place] [address] Family Medicine, Physician [address] [place] [address] Social History Tobacco Use Types Packs/Day Years [...] on filedocumented in this encounter Care Teams Dental Laboratory Technician Apprentice Relationship Specialty Start Date End Date Irma Foley NP PCP - General 05/02/17 03/16/23 documented as of this encounter
--- OUTSIDE RECORDS SUMMARY | 2025-09-06 15:42 | XMS_ITS | Encounter Summary ---
Author Organization [facility] Address [address] [place], [place] [address] Phone Care Team Providers Care All Round Butcher Name Role Phone Irma Foley PRESS OPERATOR MEAT Primary Care Provider Un available Encounter Details Date Type Department Care Team (Late st Contact Info) Description 04/21/2015 Documentation [facility] [place] [address] [place] [address] Family Medicine, Physician [address] [place] [address] Social History Tobacco Use Types Packs/Day Years [...] on filedocumented in this encounter Care Teams All Round Butcher Relationship Specialty Start Date End Date Irma Foley NP PCP - General 05/02/17 03/16/23 documented as of this encounter
--- OUTSIDE RECORDS SUMMARY | 2025-09-06 15:42 | XMS_ITS | Encounter Summary ---
Author Organization [facility] Address [address] [place], [place] [address] Phone Care Team Providers Care Tube Machine Operator Name Role Phone Irma Foley CLIENT PROGRAM MANAGER Primary Care Provider Un available Encounter Details Date Type Department Care Team (Late st Contact Info) Description 04/21/2014 Documentation [facility] [place] [address] [place] [address] Family Medicine, Physician [address] [place] [address] Social History Tobacco Use Types Packs/Day Years [...] on filedocumented in this encounter Care Teams Tube Machine Operator Relationship Specialty Start Date End Date Irma Foley NP PCP - General 05/02/17 03/16/23 documented as of this encounter
--- OUTSIDE RECORDS SUMMARY | 2025-09-06 15:42 | XMS_ITS | Encounter Summary ---
Author Organization [facility] Address [address] [place], [place] [address] Phone Care Team Providers Care Edger Operator Name Role Phone Irma Foley ENTRY LEVEL MACHINE OPERATOR Primary Care Provider Un available Encounter Details Date Type Department Care Team (Late st Contact Info) Description 04/24/2015 Documentation [facility] [place] [address] [place] [address] Family Medicine, Physician [address] [place] [address] Social History Tobacco Use Types Packs/Day Years [...] on filedocumented in this encounter Care Teams Edger Operator Relationship Specialty Start Date End Date Irma Foley NP PCP - General 05/02/17 03/16/23 documented as of this encounter
--- OUTSIDE RECORDS SUMMARY | 2025-09-06 15:42 | XMS_ITS | Encounter Summary ---
Author Organization [facility] Address [address] [place], [place] [address] Phone Care Team Providers Care Expressive Therapist Name Role Phone Irma Foley SANDWICH BOARD CARRIER Primary Care Provider Un available Encounter Details Date Type Department Care Team (Late st Contact Info) Description 04/21/2013 Documentation [facility] [place] [address] [place] [address] Family Medicine, Physician [address] [place] [address] Social History Tobacco Use Types Packs/Day Years [...] on filedocumented in this encounter Care Teams Expressive Therapist Relationship Specialty Start Date End Date Irma Foley NP PCP - General 05/02/17 03/16/23 documented as of this encounter
--- OUTSIDE RECORDS SUMMARY | 2025-09-06 15:42 | XMS_ITS | Encounter Summary ---
Author Organization [facility] Address [address] [place], [place] [address] Phone Care Team Providers Care Crew Clerk Name Role Phone Irma Foley SENIOR PRICING ANALYST Primary Care Provider Un available Encounter Details Date Type Department Care Team (Late st Contact Info) Description 04/24/2016 Documentation [facility] [place] [facility] [place] [address] Family Medicine, Physician [address] [place] [address] Social History Tobacco Use Types Packs/Day Years [...] on filedocumented in this encounter Care Teams Crew Clerk Relationship Specialty Start Date End Date Irma Foley NP PCP - General 05/02/17 03/16/23 documented as of this encounter
--- OUTSIDE RECORDS SUMMARY | 2025-09-06 15:42 | XMS_ITS | Encounter Summary ---
Author Organization [facility] Address [address] [place], [place] [address] Phone Care Team Providers Care General Expeditor Name Role Phone Irma Foley FUNNEL SETTER Primary Care Provider Un available Encounter Details Date Type Department Care Team (Late st Contact Info) Description 04/24/2016 Documentation [facility] [place] Medicine [facility] [place] [address] Family Medicine, Physician [address] [place] [address] Social History Tobacco Use Types Packs/Day Years [...] on filedocumented in this encounter Care Teams General Expeditor Relationship Specialty Start Date End Date Irma Foley NP PCP - General 05/02/17 03/16/23 documented as of this encounter
--- OUTSIDE RECORDS SUMMARY | 2025-09-06 15:42 | XMS_ITS | Encounter Summary ---
Author Organization [facility] Address [address] [place], [place] [address] Phone Care Team Providers Care Balance Truing Inspector Name Role Phone Irma Foley ACADEMIC DEAN Primary Care Provider Un available Encounter Details Date Type Department Care Team (Late st Contact Info) Description 04/20/2014 Documentation [facility] [place] Family Medicine [address] [place] [address] Family Medicine, Physician [address] [place] [address] Social History Tobacco Use Types Packs/Day Years [...] on filedocumented in this encounter Care Teams Balance Truing Inspector Relationship Specialty Start Date End Date Irma Foley NP PCP - General 05/02/17 03/16/23 documented as of this encounter
--- OUTSIDE RECORDS SUMMARY | 2025-09-06 15:42 | XMS_ITS | Encounter Summary ---
Author Organization [facility] Address [address] [place], [place] [address] Phone Care Team Providers Care Verification Rep Name Role Phone Irma Foley SUPERVISOR MOLD SHOP Primary Care Provider Un available Encounter Details Date Type Department Care Team (Late st Contact Info) Description 04/21/2015 Documentation [facility] [place] Family Medicine [address] [place] [address] Family Medicine, Physician [address] [place] [address] Social History Tobacco Use Types Packs/Day Years [...] on filedocumented in this encounter Care Teams Verification Rep Relationship Specialty Start Date End Date Irma Foley NP PCP - General 05/02/17 03/16/23 documented as of this encounter
--- OUTSIDE RECORDS SUMMARY | 2025-09-06 15:42 | XMS_ITS | Encounter Summary ---
Author Organization [facility] Address [address] [place], [place] [address] Phone Care Team Providers Care Last Putter Away Name Role Phone Irma Foley MUSEUM CURATOR Primary Care Provider Un available Encounter Details Date Type Department Care Team (Late st Contact Info) Description 04/24/2016 Documentation [facility] Family Medicine [facility] [place] [address] Family Medicine, Physician [address] [place] [address] Social History Tobacco Use Types Packs/Day Years [...] on filedocumented in this encounter Care Teams Last Putter Away Relationship Specialty Start Date End Date Irma Foley NP PCP - General 05/02/17 03/16/23 documented as of this encounter
--- OUTSIDE RECORDS SUMMARY | 2025-09-06 15:42 | XMS_ITS | Encounter Summary ---
Author Organization [facility] Address [address] [place] [phone] Phone Care Team Providers Care Ophthalmic Lens Inspector Name Role Phone Irma Foley PAIN MANAGEMENT PHYSICIAN Primary Care Provider Un available Encounter Details Date Type Department Care Team (Late st Contact Info) Description 05/08/2017 Conversion Encounter [facility] - [address] [address] Social History Tobacco Use Types Packs/Day Years [...] on filedocumented in this encounter Care Teams Ophthalmic Lens Inspector Relationship Specialty Start Date End Date Irma Foley NP PCP - General 05/02/17 03/16/23 documented as of this encounter
--- OUTSIDE RECORDS SUMMARY | 2025-09-06 15:42 | XMS_ITS | Encounter Summary ---
Author Organization [facility] Address [address] [place], [place] [address] Phone Care Team Providers Care Comb Machine Operator Name Role Phone Irma Foley SUPERVISOR CIGAR MAKING MACHINE Primary Care Provider Un available Encounter Details Date Type Department Care Team (Late st Contact Info) Description 04/21/2014 Documentation [facility] [place] [address] [place] [address] Family Medicine, Physician [address] [place] [address] Social History Tobacco Use Types Packs/Day Years [...] on filedocumented in this encounter Care Teams Comb Machine Operator Relationship Specialty Start Date End Date Irma Foley NP PCP - General 05/02/17 03/16/23 documented as of this encounter
--- OUTSIDE RECORDS SUMMARY | 2025-09-06 15:43 | XMS_ITS | Encounter Summary ---
Author Organization [facility] Address [address] [place], [place] [address] Phone Care Team Providers Care Patch Finisher Name Role Phone Irma Foley SECURITIES AND REAL ESTATE DIRECTOR Primary Care Provider Un available Encounter Details Date Type Department Care Team (Late st Contact Info) Description 05/30/2011 Documentation [facility] [place] [address] [place] [address] Family Medicine, Physician [address] [place] [address] Social History Tobacco Use Types Packs/Day Years [...] on filedocumented in this encounter Care Teams Patch Finisher Relationship Specialty Start Date End Date Irma Foley NP PCP - General 05/02/17 03/16/23 documented as of this encounter
--- OUTSIDE RECORDS SUMMARY | 2025-09-06 15:43 | XMS_ITS | Clinical Summary ---
Author Organization [facility] Address [address] [place] [address] Phone Care Team Providers Care Semiconductor Wafers Etcher Stripper Name Role Phone Breann Montoya MD Primary Care Provid er Allergies No known active allergies Medications No known medications Active Problems No known active problems Social History Tobacco Use Types Packs/Day Years Used Date Smoking Tobacco: Never Smokeless Tobacco: Never Tobacco Cessation:Counseling Given: Not Answered Education Answer Date Recorded Are you interested in more education? Not on michael e 04/21/2023 Are you concerned about learning? Not on file 04/21/2023 No 04/21/2023 No 04/21/2023 Digital Access Answer Date Recorded No 04/21/2023 No 04/21/2023 Reliable internet access at home? Not on file 04/21/2023 Device with a working camera? Not on file Comments Unknown Sex and Gender Information Value Date Recorded Sex Assigned at Not on file Legal Sex Female 12:32 PM EDT Gender Identity Not on file Sexual Orientation Not on file Last Filed Vital Signs Vital Sign Reading Time Taken Comments Blood Pressure 114/70 04/21/2023 1:17 PM EDT Pulse 46 04/21/2023 1:17 PM EDT Temperature 37 C (98.6 F) 04/21/2023 1:17 PM EDT Respiratory Rate 16 04/21/2023 1:17 PM EDT Oxygen Saturation 99% 04/21/2023 1:17 PM EDT Inhaled Oxygen Concentration - - Weight 68 kg (150 lb) 04/21/2023 1:17 PM EDT per pt Height - - Body Mass Index - - Plan of Treatment Health Maintenance Due Date Last Done Comments DEPRESSION SCREENING 2010 HPV VACCINES (1 - 3-dose series) 2013 HEPATITIS C SCREENING 2016 HIV ONE-TIME SCREENING (18-65 YEARS) 2016 PAP SMEAR 2019 Adult Td,Tdap Booster 01/22/2021 01/22/2011 SMOKING STATUS SCREENING (Once After 26 Yrs) 2024 INFLUENZA VACCINE (#1) 2025 COVID-19 VACCINE (2024- season) 2025 HIB VACCINES Completed 03/24/2000, 05/24, 03/30/1999, Additional history exists HEPATITIS A VACCINES Completed 04/21/2015, 04/19/20 14 MENINGOCOCCAL VACCINES (ACWY) Completed 04/21/2015, 01/22/2011 MENINGOCOCCAL VACCINES (B) Aged Out N o longer eligible based on patient's age to complete this topic PNEUMOCOCCAL VACCINES (0-49 years) Aged Out No longer eligible based on patient's age to complete this topic Medical Devices Not on file Insurance [place] [address] [facility] [place] [place] [address] [place] [address] [facility] Care Teams Semiconductor Wafers Etcher Stripper Relationship Specialty Start Date End Date Breann Montoya MD [address] [place] [address] PCP - General 04/21/23 Additional Source Comments The information contained in this document represents components of the legal health record. It is not the complete legal health record.[facility]
--- OUTSIDE RECORDS SUMMARY | 2025-09-06 15:43 | XMS_ITS | Encounter Summary ---
Author Organization [facility] Address [address] [place], [place] [address] Phone Care Team Providers Care Nuclear Power Reactor Operator Name Role Phone Irma Foley ASSESSMENT CLINICIAN Primary Care Provider Un available Encounter Details Date Type Department Care Team (Late st Contact Info) Description 06/14/2011 Documentation [facility] [place] [address] [place] [address] Family Medicine, Physician [address] [place] [address] Social History Tobacco Use Types Packs/Day Years [...] on filedocumented in this encounter Care Teams Nuclear Power Reactor Operator Relationship Specialty Start Date End Date Irma Foley NP PCP - General 05/02/17 03/16/23 documented as of this encounter
--- OUTSIDE RECORDS SUMMARY | 2025-09-06 15:43 | XMS_ITS | Encounter Summary ---
Author Organization [facility] Address [address] [place], [place] [address] Phone Care Team Providers Care Prosthetics Assistant Name Role Phone Irma Foley CHECK WEIGHER Primary Care Provider Un available Encounter Details Date Type Department Care Team (Late st Contact Info) Description 06/14/2011 Documentation [facility] [place] [address] [place] [address] Family Medicine, Physician [address] [place] [address] Social History Tobacco Use Types Packs/Day Years [...] on filedocumented in this encounter Care Teams Prosthetics Assistant Relationship Specialty Start Date End Date Irma Foley NP PCP - General 05/02/17 03/16/23 documented as of this encounter
--- OUTSIDE RECORDS SUMMARY | 2025-09-06 15:43 | XMS_ITS | Encounter Summary ---
Author Organization [facility] Address [address] [place], [place] [address] Phone Care Team Providers Care E Commerce Manager Name Role Phone Irma Foley SAW SETTER Primary Care Provider Un available Encounter Details Date Type Department Care Team (Late st Contact Info) Description 06/14/2011 Documentation [facility] [place] Family Medicine [address] [place] [address] Family Medicine, Physician [address] [place] [address] Social History Tobacco Use Types Packs/Day Years [...] on filedocumented in this encounter Care Teams E Commerce Manager Relationship Specialty Start Date End Date Irma Folye NP PCP - General 05/02/17 03/16/23 documented as of this encounter
--- OUTSIDE RECORDS SUMMARY | 2025-09-06 15:43 | XMS_ITS | Encounter Summary ---
Author Organization [facility] Address [address] [place], [place] [address] Phone Care Team Providers Care Retort Setter Name Role Phone Irma Foley BUCKET TURNER Primary Care Provider Un available Encounter Details Date Type Department Care Team (Late st Contact Info) Description 06/14/2011 Documentation [facility] [place] Family Medicine [address] [place] [address] Family Medicine, Physician [address] [place] [address] Social History Tobacco Use Types Packs/Day Years [...] on filedocumented in this encounter Care Teams Retort Setter Relationship Specialty Start Date End Date Irma Foley NP PCP - General 05/02/17 03/16/23 documented as of this encounter
--- OUTSIDE RECORDS SUMMARY | 2025-09-06 15:43 | XMS_ITS | Encounter Summary ---
Author Organization [facility] Address [address] [place], [place] [address] Phone Care Team Providers Care Poultry Inspector Name Role Phone Irma Foley MEDICAL OFFICE TECHNOLOGY INSTRUCTOR Primary Care Provider Un available Encounter Details Date Type Department Care Team (Late st Contact Info) Description 06/14/2011 Documentation [facility] [place] Family Medicine [address] [place] [address] Family Medicine, Physician [address] [place] [address] Social History Tobacco Use Types Packs/Day Years [...] on filedocumented in this encounter Care Teams Poultry Inspector Relationship Specialty Start Date End Date Irma Foley NP PCP - General 05/02/17 03/16/23 documented as of this encounter
--- OUTSIDE RECORDS SUMMARY | 2025-09-06 15:43 | XMS_ITS | Encounter Summary ---
Author Organization [facility] Address [address] [place], [place] [address] Phone Care Team Providers Care Horticultural Agent Name Role Phone Irma Foley SCHOOL CROSSING GUARD Primary Care Provider Un available Encounter Details Date Type Department Care Team (Late st Contact Info) Description 06/14/2011 Documentation [facility] [place] [address] [place] [address] Family Medicine, Physician [address] [place] [address] Social History Tobacco Use Types Packs/Day Years [...] on filedocumented in this encounter Care Teams Horticultural Agent Relationship Specialty Start Date End Date Irma Foley NP PCP - General 05/02/17 03/16/23 documented as of this encounter
--- OUTSIDE RECORDS SUMMARY | 2025-09-06 15:43 | XMS_ITS | Encounter Summary ---
Author Organization [facility] Address [address] [place], [place] [address] Phone Care Team Providers Care Human Resources Analyst Name Role Phone Irma Foley MEDICAL INSURANCE CLERK Primary Care Provider Un available Encounter Details Date Type Department Care Team (Late st Contact Info) Description 04/21/2013 Documentation [facility] [place] [address] [place] [address] Family Medicine, Physician [address] [place] [address] Social History Tobacco Use Types Packs/Day Years [...] on filedocumented in this encounter Care Teams Human Resources Analyst Relationship Specialty Start Date End Date Irma Foley NP PCP - General 05/02/17 03/16/23 documented as of this encounter
--- OUTSIDE RECORDS SUMMARY | 2025-09-06 15:43 | XMS_ITS | Encounter Summary ---
Author Organization [facility] Address [address] [place], [place] [address] Phone Care Team Providers Care Fence Post Driver Name Role Phone Irma Foley PRICING LEAD Primary Care Provider Un available Encounter Details Date Type Department Care Team (Late st Contact Info) Description 06/14/2011 [place]ation [facility] [place] [address] [place] [address] Family Medicine, Physician [address] [place] [address] Social History Tobacco Use Types Packs/Day Years [...] on filedocumented in this encounter Care Teams Fence Post Driver Relationship Specialty Start Date End Date Irma Foley NP PCP - General 05/02/17 03/16/23 documented as of this encounter
--- OUTSIDE RECORDS SUMMARY | 2025-09-06 15:43 | XMS_ITS | Encounter Summary ---
Author Organization [facility] Address [address] [place], [place] [address] Phone Care Team Providers Care Inventory Auditor Name Role Phone Irma Foley DEMAND PLANNER Primary Care Provider Un available Encounter Details Date Type Department Care Team (Late st Contact Info) Description 06/14/2011 [place] [facility] [place] [address] [place] [address] Family Medicine, Physician [address] [place] [address] Social History Tobacco Use Types Packs/Day Years [...] on filedocumented in this encounter Care Teams Inventory Auditor Relationship Specialty Start Date End Date Irma Foley NP PCP - General 05/02/17 03/16/23 documented as of this encounter
--- OUTSIDE RECORDS SUMMARY | 2025-09-06 15:43 | XMS_ITS | Encounter Summary ---
Author Organization [facility] Address [address] [place], [place] [address] Phone Care Team Providers Care Record Press Supervisor Name Role Phone Irma Foley JUICE PACKAGING MACHINES SETTER Primary Care Provider Un available Encounter Details Date Type Department Care Team (Late st Contact Info) Description 02/10/2012 Documentation [facility] [place] Family Medicine [address] [place] [address] Family Medicine, Physician [address] [place] [address] Social History Tobacco Use Types Packs/Day Years [...] on filedocumented in this encounter Care Teams Record Press Supervisor Relationship Specialty Start Date End Date Irma Foley NP PCP - General 05/02/17 03/16/23 documented as of this encounter
--- OUTSIDE RECORDS SUMMARY | 2025-09-06 15:43 | XMS_ITS | Encounter Summary ---
Author Organization [facility] Address [address] [place], [place] [address] Phone Care Team Providers Care Frit Mixer Name Role Phone Irma Foley SEAMING INSPECTOR Primary Care Provider Un available Encounter Details Date Type Department Care Team (Late st Contact Info) Description 06/14/[address] [facility] [place] [address] [place] [address] Family Medicine, Physician [address] [place] [address] Social History Tobacco Use Types Packs/Day Years [...] on filedocumented in this encounter Care Teams Frit Mixer Relationship Specialty Start Date End Date Irma Foley NP PCP - General 05/02/17 03/16/23 documented as of this encounter
--- OUTSIDE RECORDS SUMMARY | 2025-09-06 15:43 | XMS_ITS | Encounter Summary ---
Author Organization [facility] Address [address] [place], [place] [address] Phone Care Team Providers Care Solid Waste Truck Driver Name Role Phone Irma Foley INBOUND SALES ADVISOR Primary Care Provider Un available Encounter Details Date Type Department Care Team (Late st Contact Info) Description 03/09/2010 Documentation [facility] [place] Family Medicine [address] [place] [address] Family Medicine, Physician [address] [place] [address] Social History Tobacco Use Types Packs/Day Years [...] on filedocumented in this encounter Care Teams Solid Waste Truck Driver Relationship Specialty Start Date End Date Irma Foley NP PCP - General 05/02/17 03/16/23 documented as of this encounter
--- OUTSIDE RECORDS SUMMARY | 2025-09-06 15:43 | XMS_ITS | Encounter Summary ---
Author Organization [facility] Address [address] [place], [place] [id number] Phone Care Team Providers Care Crop Grain Or Livestock Farm Manager Name Role Phone Irma Foley SENIOR EXECUTIVE ASSISTANT Primary Care Provider Un available Encounter Details Date Type Department Care Team (Late st Contact Info) Description 06/14/2011 Documentation [facility] [place] Family Medicine [address] [place] [address] Family Medicine, Physician [address] [place] [address] Social History Tobacco Use Types Packs/Day Years [...] on filedocumented in this encounter Care Teams Crop Grain Or Livestock Farm Manager Relationship Specialty Start Date End Date Irma Foley NP PCP - General 05/02/17 03/16/23 documented as of this encounter
--- OUTSIDE RECORDS SUMMARY | 2025-09-06 15:43 | XMS_ITS | Clinical Summary ---
Author Organization [facility] Address [address] [place] [address] Phone Care Team Providers Care Title Closer Name Role Phone Unavailable Primary Care Provider Unavailabl e Allergies No known active allergies Medications No known medications Active Problems Problem Noted Date Diagnosed Date Influenza vaccine refused 10/06/2018 Overview (10/06/2018): Offered and refused at 10/06/2018 - T Assessment & Plan (10/06/2018 11:11 AM EST): Counseled that she can return at any time to get the flu vaccine, counseling offered, questions answered - [facility] Immunizations Immunization Administration Dates Next Due DTP 01/23/1999 DTaP [...] well Paternal Grandfather Paterna l grandfather: Sudden /SD under age 55, Paternal Grandmother Sister Sabree [...] 82 10/06/2018 10:46 AM EST Temperature 36.6 C (97.9 F) 10/06/2018 10:46 AM EST Respiratory Rate - - Oxygen Saturation - [...] 05/30/2000, Additional history exists Influenza Vaccines (#1) 2025 COVID-19 Vaccine ( season) 2025 Hepatitis B Vaccines Completed 06/12/1999, 01/23/1999, 1998 [...] complete this topic Procedures * Due to [facility] law, this organization might not be sharing sensitive test results. Procedure Name Priority Date/Time Associated Diagnosis Comments CHLAMYDIA AND GONORRHEA, AMPLIFIED Routine 10/06/2018 10:48 AM EST Special screening for bacterial and spirochetal disease from Last 3 Months or Most Recently Relevant to Health Maintenance Results * Due to [employer] law, this organization might not be sharing sensitive test results. * Chlamydia and Gonorrhoea, Amplified (10/06/2018 10:48 AM EST) Chlamydia Trachomatis, DNA Probe NEGATIVE (NEG) [facility] Comment: No Chlamydia Trachomatis RNA detected in this patient's sample (REFERENCE RANGE/NORMAL VALUE: NOT DETECTED) Note: This test uses photogrammetric technician- mediated amplification method to detect rRNA from C. Trachomatis URINE GC AMP PROBE NEGATIVE (NEG) [facility] Comment: No Neisseria Gonorrhoeae RNA detected in this patient's sample (REFERENCE RANGE/NORMAL VALUE: NOT DETECTED) NOTE: This test uses photogrammetric technician-mediated amplification method to detect rRNA from N.Gonorrhoeae. [...] without risk of sexual abuse. Consult the [facility] if needed. Contact phone number . Therapeutic failure or success cannot be determined with the Aptima Combo2 assay since nucleic acid may persist following appropriate antimicrobial therapy. The Centers for Disease Control and Prevention (CDC) recommends confirmatory retesting using culture or a different nucleic acid amplification test when positive results occur, if indicated. Testing performed or reported by [facility], a Service of [facility], [facility] [place] [address] CLIA [id number] Markus Brown MD, Coffee Roaster Helper Urine 10/06/2018 10:4 8 AM EST 10/07/2018 12:15 AM EST Irma Foley NP LAB MICROBIOLOGY - GENERA L ORDERABLES Final Result [facility] from Last 3 Months or Most Recently Relevant to Health Maintenance Insurance [facility] NON PCC
--- OUTSIDE RECORDS SUMMARY | 2025-09-06 15:43 | XMS_ITS | Encounter Summary ---
Author Organization [facility] Address [address] [place], [place] [id number] Phone Care Team Providers Care Brand Ambassador Name Role Phone Irma Foley LICENSED FINAL EXPENSE AGENTS Primary Care Provider Un available Encounter Details Date Type Department Care Team (Late st Contact Info) Description 06/14/2011 Documentation [facility] [place] Family Medicine [address] [place] [address] Family Medicine, Physician [address] [place] [address] Social History Tobacco Use Types Packs/Day Years [...] on filedocumented in this encounter Care Teams Brand Ambassador Relationship Specialty Start Date End Date Irma Foley NP PCP - General 05/02/17 03/16/23 documented as of this encounter
--- OUTSIDE RECORDS SUMMARY | 2025-09-06 15:43 | XMS_ITS | Encounter Summary ---
Author Organization [facility] Address [address] [place], [place] [phone] Phone Care Team Providers Care Chicken Dresser Name Role Phone Irma Foley CANE FEEDER Primary Care Provider Un available Encounter Details Date Type Department Care Team (Late st Contact Info) Description 02/10/2012 [place] [facility] [place] [address] [place] [address] Family Medicine, Physician [address] [place] [address] Social History Tobacco Use Types Packs/Day Years [...] on filedocumented in this encounter Care Teams Chicken Dresser Relationship Specialty Start Date End Date Irma Foley NP PCP - General 05/02/17 03/16/23 documented as of this encounter
--- OUTSIDE RECORDS SUMMARY | 2025-09-06 15:43 | XMS_ITS | Encounter Summary ---
Author Organization [facility] Address [address] [place], [place] [phone] Phone Care Team Providers Care Ict Support Technicians Name Role Phone Irma Foley RESEARCH HOME ECONOMIST Primary Care Provider Un available Encounter Details Date Type Department Care Team (Late st Contact Info) Description 04/24/2015 Documentation [facility] [place] Family Medicine [address] [place] [address] Family Medicine, Physician [address] [place] [address] Social History Tobacco Use Types Packs/Day Years [...] on filedocumented in this encounter Care Teams Ict Support Technicians Relationship Specialty Start Date End Date Irma Foley NP PCP - General 05/02/17 03/16/23 documented as of this encounter
--- OUTSIDE RECORDS SUMMARY | 2025-09-06 15:43 | XMS_ITS | Encounter Summary ---
Author Organization [facility] Address [address] [place], [place] [phone] Phone Care Team Providers Care Hot Stick Man Name Role Phone Irma Foley INSIDE SALES ADVERTISING EXECUTIVE Primary Care Provider Un available Encounter Details Date Type Department Care Team (Late st Contact Info) Description 06/14/2011 Documentation [facility] [place] Family Medicine [address] [place] [address] Family Medicine, Physician [address] [place] [address] Social History Tobacco Use Types Packs/Day Years [...] on filedocumented in this encounter Care Teams Hot Stick Man Relationship Specialty Start Date End Date Irma Foley NP PCP - General 05/02/17 03/16/23 documented as of this encounter
--- OUTSIDE RECORDS SUMMARY | 2025-09-06 15:43 | XMS_ITS | Encounter Summary ---
Author Organization [facility] Address [address] [place], [place] [phone] Phone Care Team Providers Care Dog Breeder Name Role Phone Irma Foley ANALYSIS SPECIALIST Primary Care Provider Un available Encounter Details Date Type Department Care Team (Late st Contact Info) Description 06/14/2011 Documentation [facility] [place] [address] [place] [address] Family Medicine, Phys[place] [address] [place] [address] Social History Tobacco Use Types Packs/Day Years [...] on filedocumented in this encounter Care Teams Dog Breeder Relationship Specialty Start Date End Date Irma Foley NP PCP - General 05/02/17 03/16/23 documented as of this encounter
== END 2025-09-06 12:18 | disposition home or self-care (01) ==
LOC: HO.HMCFM 11:51
PROVIDERS: PCP Nurse Practitioner Family; Visit Provider Nurse Practitioner Family
DX: Z00.00 Encounter for general adult medical examination without abnormal findings (principal); Z12.4 Encounter for screening for malignant neoplasm of cervix; Z30.09 Encounter for other general counseling and advice on contraception; J30.2 Other seasonal allergic rhinitis; Z28.21 Immunization not carried out because of patient refusal; Z80.3 Family history of malignant neoplasm of breast